=== PATIENT | female | born 1955 | race Caucasian/White ===

== ENCOUNTER 2024-06-08 08:11 | Inpatient (IN) | payer MEDICARE, MEDICAID, SELFPAY ==
[2024-06-08] VITALS (13 sets, daily range): BP systolic 121–163; BP diastolic 76–99; PULSE 91–125; RESP 18–34; TEMP 36.4–37.1; O2SAT 90–97; BMI 23.1
--- NOTE | ~2024-06-08 | XR_ITS ---
EXAMINATION: XR CHEST CLINICAL INFORMATION: Shortness of breath. COMPARISON: None available. TECHNIQUE: AP upright portable view of the chest was obtained. FINDINGS: Mild rightward rotation of the patient. The cardiac, hilar, and mediastinal contours are normal. There are patchy parenchymal opacities throughout the left greater than right lungs, with lower lung predominance, with distribution highly suggestive of infectious/inflammatory abnormality. Minimal blunting costophrenic angles noted, possibly technical, although tiny effusions are not excluded. There is no pneumothorax. Bony structures appear normal as do soft tissues. XR/XR chest 1V IMPRESSION: -Diffuse left greater than right patchy parenchymal opacities highly suggestive of multifocal infectious or inflammatory pneumonia. Consider viral, atypical etiologies. -Minimal blunting of the costophrenic angles could be technical, although tiny effusions are not excluded. Electronically signed by: Juan Domínguez MD 06/08/2024 08:54 AM [facility]
--- NOTE | 2024-06-08 08:22 | ECG_ITS ---
Test Reason : sob Blood Pressure : / mmHG Vent. Rate : 123 BPM Atrial Rate : 123 BPM P-R Int : 154 ms QRS Dur : 088 ms QT Int : 312 ms P-R-T Axes : 073 085 067 degrees QTc Int : 446 ms Sinus tachycardia Otherwise normal ECG No previous ECGs available Referred By: Ashley Akhtar Electronically Signed By:Mitchell Monsalve
--- NOTE | 2024-06-08 08:23 | ED_ITS ---
HPI - SOB/Dyspnea General Chief Complaint: Dyspnea Stated Complaint: WEAK,SOB H/O COPD,DUONEB GIVEN PER EMS Time Seen by Provider: 06/08/24 08:20 Source: patient Mode of arrival: EMS History of Present Illness ED Provider: Giovana WAGONER Narrative: 69-year-old female, history of COPD, everyday smoker but has not had a cigarette according to the patient in 2 weeks, denies any alcohol use or any other prescription medications. States her shortness of breath has been worsening over the past 2 weeks. She denies any fever, chills, GI or symptoms. Related Data Allergies Allergy/AdvReac Type Severity Reaction Status Date / Time aspirin [ASA] Allergy Hives Verified 06/08/24 08:21 Penicillins Allergy Hives Verified 06/08/24 08:21 Review of Systems 2 Review of Systems: Pertinent positives and negatives as stated in HPI COUNTS INCLUDE 234 BEDS AT THE [facility] Social History Social History Alcohol intake: former Smoked in Last 30 Days: Yes Use of substances other than those prescribed or required for medical reasons: No Advance Directives: No Advance Directives Information Provided: Yes Physical Exam 2 Vital Signs: Vital Signs: Last Vital Signs Temp 98 F 06/08/24 08:15 Pulse 123 H 06/08/24 09:56 Resp 22 H 06/08/24 09:56 BP 136/94 H 06/08/24 09:56 Pulse Ox 91 L 06/08/24 09:56 O2 Del Method High Flow Nasal C annula 06/08/24 09:56 O2 Flow Rate 50 06/08/24 09:56 Oxygen Flow Rate 6 06/08/24 08:15 BMI result Body Mass Index 23.1 VITAL SIGNS: Reviewed. GENERAL: Cachectic, in moderate distress. HEAD: Normocephalic/atraumatic EYES: PERRLA, EOMI EARS: Ext canals without abnormality NOSE: Nares patent bilateral OROPHARYNX: no oral lesions noted, posterior pharynx clear NECK: Supple, no adenopathy LUNGS: Decreased breath sounds throughout, increased work of breathing with tachypnea SpO2<85> CARDIOVASCULAR: Regular rate and rhythm without noted murmurs ABDOMEN: Soft, non-tender, non-distended with bowel sounds. MUSCULOSKELETAL: No tenderness, deformities, or effusions noted on gross inspection. EXTREMITIES: No cyanosis, clubbing or edema. SKIN: Inspection of the skin reveals no rashes NEUROLOGIC: Alert and oriented x 4. Strength and sensation to light touch were grossly intact x 4. Medications Administered Discontinued Medications Generic Name Dose Route Start Last Admin Trade Name Patricia PRN Reason Stop Dose Admin Albuterol Sulfate 7.5 mg/ 10 mg 06/08/24 08:22 06/08/24 08:41 Albuterol Sulfate 2.5 mg INHALE 06/08/24 08:23 10 mg ONCE ONE Administration Levofloxacin 750 mg in 150 mls @ 100 mls/hr 06/08/24 08:30 06/08/24 09:55 Levaquin IV 06/08/24 09:59 100 mls/hr ONCE ONE Administration Methylprednisolone Sodium Succinate 125 mg 06/08/24 08:22 06/08/24 08:36 Methylprednisolone Sod Succ 125 Mg/2 Ml Vial IVPUSH 06/08/24 08:23 125 mg ONCE ONE Administration Medical Decision Making Medical Decision Making MDM Narrative: 69-year-old female with history and clinical presentation, DD DX: COPD exacerbation, will rule out pneumonia or viral illness, no clinical suspicion for ACS. EKG: Sinus tachycardia, HR-123, no STEMI, KS/QRS/QTC is within normal limits. INTERVENTION: Bipap, albuterol, steroids 0940: Patient has significantly improved and is transition to high-flow, 0958 informed by respiratory therapy that patient is doing very well I reviewed interpreted all investigations and there is a noted leukocytosis when taken in conjunction with initial presentation and chest x-ray findings of infiltrate suggestive of sepsis with pneumonia, did obtain lactic acid and blood cultures and patient has already received antibiotics. Otherwise, no anemia or thrombocytopenia. VBG does not demonstrate any respiratory acidosis or hypercapnia. There is no demonstrated CLINT or electrolyte derangements, liver enzymes do appear to be elevated however patient has no reported history of nausea, vomiting or abdominal pain to otherwise suggest acute liver infection or gallbladder infection. 0953: I discussed case with inpatient hospitalist who will review the case for admission. Differential Diagnosis Differential Diagnoses: The differential diagnosis associated with the presentation includes Please see above Admission/Observation Consideration of admission/observation: Escalation of care including admission/observation considered Patient meets inpatient level of care Consult Healthcare Provider Management of the patient was discussed with: Hospitalist See the discussion above Lab Data [facility] Lab Attestation statement: I reviewed the patient's lab results. See the discussion above 06/08/24 08:55 06/08/24 08:55 Labs: Lab Results 06/08/24 06/08/24 Range/Units 08:55 09:00 WBC 20.3 H (4.8-10.8) X10*3/uL RBC 4.70 (4.20-5.50) X10*6/uL Hgb 13.8 (12.0-16.0) g/dl Hct 40.8 (37.0-47.0) % MCV 86.8 (80.0-98.0) fL MCH 29.4 (27.0-33.0) pg MCHC 33.8 (31.0-35.0) g/dl RDW 13.8 (11.0-16.0) % Plt Count 364 (160-400) X10*3/uL MPV 9.6 (9.4-12.3) fL Immature Gran % (Auto) 0.9 H (0.0-0.4) % Neut % (Auto) 92.3 H (45-73) % Lymph % (Auto) 3.1 L (20-40) % [place] % (Auto) 3.1 (2-11) % Eos % (Auto) 0.4 (0-4) % Baso % (Auto) 0.2 (0-2) % Lymph # (Auto) 0.6 L (1.2-4.9) X10*3/uL [place] # (Auto) 0.6 (0.1-1.2) X10*3/uL Eos # (Auto) 0.1 (0.0-0.4) X10*3/uL Baso # (Auto) 0.0 (0.0-0.2) X10*3/uL Abs Immat Gran (auto) 0.19 H (0.00-0.03) X10*3/uL Absolute Neuts (auto) 18.7 H (2.0-8.3) x10*3/uL Absolute Nucleated RBC 0.000 (0.0-0.012) X10*3/uL Nucleated RBC % (auto) 0.0 (0.0-0.2) /100WBC Smear Tech's Comments VERIFIED VBG pH 7.44 H (7.32-7.43) VBG pCO2 43 mmHg VBG pO2 70 mmHg VBG HCO3 30 H (22-26) mmol/L VBG O2 Saturation 90.0 % VBG Base Excess 5.6 mmol/L Sodium 137 (135-145) mmol/L Potassium 4.6 (3.3-5.1) mmol/L Chloride 95 L (96-108) mmol/L Carbon Dioxide 28 (22-29) mmol/L Anion Gap 19 (12-20) BUN 18 H (9-16) mg/dL Creatinine 0.75 (0.5-1.4) mg/dL Estim Creat Clear Calc 64.6 Estimated GFR > 60 Random Glucose 139 H (60-115) mg/dL Calcium 8.6 (8.4-10.2) mg/dL Magnesium 2.3 (1.6-2.6) mg/dL Total Bilirubin 1.5 H (0.0-1.0) mg/dL AST 124 H (5-31) U/L ALT 39 H (0-31) U/L Alkaline Phosphatase 264 H (39-117) U/L Total Protein 7.5 (6.5-8.0) g/dL Albumin 3.1 L (3.5-5.0) g/dL Independent Interpretation I performed an independent interpretation of an: EKG Interpretation: See above Radiology Impression Discussion of test interpretation with radiology: I discussed test interpretation with the radiologist Radiologist Impression: See above Chronic Conditions Patient?s care impacted by: Other COPD, everyday smoker Critical Care Time Critical Care Time Critical Care Time: Yes Total Critical Care Time: 60 Attestation: I personally attest to this time spent taking care of the patient. Discharge Plan Discharge Clinical Impression: COPD exacerbation, Acute hypoxic respiratory failure, Sepsis, Pneumonia Patient Disposition: Admitted As Inpatient Print Language: Persian
[2024-06-08] MEDS: methylPREDNISolone Sod Succ 125 MG/2 ML VIAL IVPUSH (08:36)
[2024-06-08] MEDS: Albuterol Sulfate 7.5 MG, Albuterol Sulfate (0.083%) 2.5 MG 10 MG INHALE (08:41)
[2024-06-08 09:02] LABS: Basophils Percent Auto 0.2 % (0-2); Eosinophils Absolute Auto 0.1 X10*3/uL (0.0-0.4); Eosinophils Percent Auto 0.4 % (0-4); Hematocrit 40.8 % (37.0-47.0); Hemoglobin 13.8 g/dl (12.0-16.0); Imm Gran Abs Auto 0.19 X10*3/uL (0.00-0.03); Imm Gran Pct Auto 0.9 % (0.0-0.4); Lymphocytes Absolute Auto 0.6 X10*3/uL (1.2-4.9); Lymphocytes Percent Auto 3.1 % (20-40); MANUAL DIFF FLAG SCAN; Mean Corpuscular HGB Conc 33.8 g/dl (31.0-35.0); Mean Corpuscular Hemoglobin 29.4 pg (27.0-33.0); Mean Corpuscular Volume 86.8 fL (80.0-98.0); Mean Platelet Volume 9.6 fL (9.4-12.3); Monocytes Absolute Auto 0.6 X10*3/uL (0.1-1.2); Monocytes Percent Auto 3.1 % (2-11); Neutrophils Absolute Auto 18.7 x10*3/uL (2.0-8.3); Neutrophils Percent Auto 92.3 % (45-73); Platelet Count 364 X10*3/uL (160-400); Red Cell Distribution Width 13.8 % (11.0-16.0); SCAN SMEAR FLAG 1; White Blood Count 20.3 X10*3/uL (4.8-10.8)
[2024-06-08 09:05] LABS: VBG Base Excess 5.6 mmol/L; VBG HCO3 30 mmol/L (22-26); VBG pCO2 43 mmHg; VBG pH 7.44 (7.32-7.43); VBG pO2 70 mmHg
[2024-06-08 09:05] LABS: Venous Blood Gas Refer to POC result
[2024-06-08 09:23] LABS: Alanine Aminotransferase 39 U/L (0-31); Albumin Level 3.1 g/dL (3.5-5.0); Alkaline Phosphatase 264 U/L (39-117); Anion Gap 19 (12-20); Aspartate Amino Transferase 124 U/L (5-31); Bilirubin Total 1.5 mg/dL (0.0-1.0); Blood Urea Nitrogen 18 mg/dL (9-16); Calcium 8.6 mg/dL (8.4-10.2); Carbon Dioxide 28 mmol/L (22-29); Chloride 95 mmol/L (96-108); Creatinine Clr Calc Pharmacy 64.6; Estimated Glomerular Filt Rate > 60; Glucose Random 139 mg/dL (60-115); Magnesium 2.3 mg/dL (1.6-2.6); Potassium 4.6 mmol/L (3.3-5.1); Sodium 137 mmol/L (135-145); Total Protein 7.5 g/dL (6.5-8.0)
[2024-06-08 09:31] LABS: SLIDE REVIEW VERIFIED
--- NOTE | 2024-06-08 09:48 | PC.NURSE ---
Patient difficult stick, 1st set of cultures obtained by RN, tech attempting to obtained 2nd set
[2024-06-08] MEDS: levoFLOXacin/D5W 750 MG/150 ML PIGGYBACK 100 MG IV (09:55)
[2024-06-08 10:25] LABS: Lactic Acid 2.4 mmol/L (0.5-2.0)
[2024-06-08 10:34] LABS: Influenza A PCR NEGATIVE (Negative); Influenza B PCR NEGATIVE (Negative); Resp Syncy Virus RNA Qual PCR NEGATIVE (Negative); SARS COV2 PCR INHOUSE NEGATIVE (Negative)
--- NOTE | 2024-06-08 11:17 | PHA.MEDREC ---
Addendum entered by Danyel Roy RPh 06/08/24 11:23: Reviewed by [facility] Original Note: Pharmacy Consult ? Medication Reconciliation Pharmacy has completed the medication reconciliation. Spoke to patient to confirm med list. Patient was able to name what medications she takes. Patient states she is no longer taking Buspirone 30 mg, last fill date was 06/08/24 for 90 days. Patent says she has not been taking this medication in over two months. patient confirmed she was taking Clonazepam 1 mg in the morning and 1 mg at bedtime.
[2024-06-08 11:55] LABS: Reflex Lactate? Lactic Acid Added
--- NOTE | 2024-06-08 12:01 | P.HPHOSP_ITS ---
History of Present Illness Date of Service: 06/08/24 Chief Complaint: SOB x1 month Patient is a 69-year-old female with a past medical history significant for COPD and tobacco use, who reported to the ED with shortness of breath, weakness and dry cough for the past 2 weeks. She denies any sick contacts, fever, chills, chest pain, nausea, vomiting or abdominal pain. She reports that she stopped 2 weeks ago due to her worsening shortness of breath. She has been using her rescue inhaler at home 4 to 5 times a day which she only usually uses every other day at baseline. She was placed on BiPAP initially with improvement in transitioned to high-flow oxygen and is feeling much better. She reports minimal eating and drinking for the past few days due to nausea and occasional bilious vomiting secondary to her shortness of breath and weakness. Review of Systems 2 Constitutional: Constitutional: Denies chills, Reports fatigue, Denies fever(s), Denies headache(s), Reports lethargy and Reports weakness Eyes: Eyes: Denies blurry vision and Denies change in vision ENT: Denies headache(s), Denies nasal congestion, Denies nasal discharge and Denies sore throat Cardiovascular: Cardiovascular: Denies chest pain, Denies rapid heart rate, Denies leg edema, Denies lightheadedness and Reports dyspnea Respiratory: Respiratory: Denies chest congestion, Reports cough (dry) and Reports dyspnea Gastrointestinal: Gastrointestinal: Denies coffee ground emesis, Denies constipation, Denies diarrhea, Reports nausea, Reports vomiting and Denies hematemesis Genitourinary: Genitourinary: Denies dysuria and Denies urinary urgency Musculoskeletal: Musculoskeletal: Denies myalgias, Denies numbness and Denies tingling Integumentary/Breasts: Skin/Breast: Denies rash Neurologic: Denies confusion, Denies headache(s), Denies memory loss, Denies numbness, Denies tingling and Reports weakness Psychiatric: Psychiatric: Denies confusion and Denies memory loss Endocrine: Endocrine: Reports fatigue [facility] Medical History (Updated 06/08/24 @ 12:56 by Mima Alvarez PA-C) Tobacco abuse COPD (chronic obstructive pulmonary disease) Social History Alcohol intake: former Smoked in Last 30 Days: Yes Use of substances other than those prescribed or required for medical reasons: No Advance Directives: No Advance Directives Information Provided: Yes Meds Allergies Allergy/AdvReac Type Severity Reaction Status Date / Time aspirin [ASA] Allergy Hives Verified 06/08/24 08:21 Penicillins Allergy Hives Verified 06/08/24 08:21 Active Medications: Current Medications Acetaminophen (Acetaminophen 325 Mg Tablet) 650 mg PO Q6H PRN PRN Reason: Pain, Mild (Pain Scale 1-3), fever or headache Calcium Carbonate (Calcium Carbonate 750 Mg Tab.Chew) 750 mg PO Q4H PRN PRN Reason: Heartburn Ceftriaxone Sodium (Ceftriaxone Sodium 1 Gm Vial) 1 gm IVPUSH DAILY [facility] Albuterol Sulfate 2.5 mg/ (Albuterol/Ipratropium 3 ml) 0 mg INHALE RQ4H WHILE AWAKE [facility] Enoxaparin Sodium (Enoxaparin Sodium 40 Mg/0.4 Ml Syringe) 40 mg SUBCUT Q24H [facility] Azithromycin 500 mg/ Sodium (Chloride) 250 mls @ 125 mls/hr IV DAILY [facility] Magnesium Hydroxide (Milk Of Magnesia 30 Ml Oral.Susp) 30 ml PO DAILY PRN PRN Reason: Constipation Melatonin (Melatonin 3 Mg Tablet) 6 mg PO BEDTIME PRN PRN Reason: Insomnia Methylprednisolone Sodium Succinate (Methylprednisolone Sod Succ 40 Mg/Ml Vial) 40 mg IVPUSH BID [facility] Ondansetron HCl (Ondansetron Hcl 4 Mg/2 Ml Vial) 4 mg IVPUSH Q8H PRN PRN Reason: Nausea and Vomiting Sodium Chloride (0.9 % Sodium Chloride Flush 3 Ml Syringe) 3 ml IVFLUSH QSHIFT [facility] Home Medications ?Medication ?Instructions ?Recorded ?Confirmed ?Last Taken ?Type albuterol sulfate 90 mcg/actuation 2 puff inhalation Q6H PRN wheezing 06/08/24 06/08/24 Unknown History aerosol inhaler atorvastatin 20 mg tablet 20 mg PO DAILY 06/08/24 06/08/24 06/07/24 History clonazepam 1 mg tablet 1 mg PO BEDTIME 06/08/24 06/08/24 06/07/24 History clonazepam 1 mg tablet 1 mg PO DAILY 06/08/24 06/08/24 06/07/24 History diphenhydramine HCl 25 mg tablet 25 mg PO BEDTIME PRN Allergy 06/08/24 06/08/24 Unknown History (Banophen) Symptoms montelukast 10 mg tablet 10 mg PO DAILY 06/08/24 06/08/24 06/07/24 History paroxetine HCl 30 mg tablet 30 mg PO BEDTIME 06/08/24 06/08/24 06/07/24 History paroxetine HCl 40 mg tablet 40 mg PO DAILY 06/08/24 06/08/24 06/07/24 History trazodone 50 mg tablet 50 - 150 mg PO BEDTIME PRN insomnia 06/08/24 06/08/24 Unknown History Physical Exam 2 Vital Signs and Narrative: Vital Signs: Last Vital Signs Temp 98.8 F 06/08/24 11:58 Pulse 109 H 06/08/24 11:58 Resp 18 06/08/24 11:58 BP 134/92 H 06/08/24 11:58 Pulse Ox 92 06/08/24 11:58 O2 Del Method High Flow Nasal C annula 06/08/24 11:58 O2 Flow Rate 50 06/08/24 09:56 Oxygen Flow Rate 6 06/08/24 08:15 BMI result Body Mass Index 23.1 General: AOx3, no acute distress, on high flow O2, bedside Resp: diffuse wheezing bilaterally CVS: tachy, regular rhythm GI: +BS, NT, no distention Skin: Warm, dry Extremities: No edema Psych: Appropriate affect Const: General: No confusion Orientation/consciousness: No confusion Neuro: General: No confusion Results Labs 06/08/24 08:55 06/08/24 08:55 Labs: Laboratory Results - last 24 hr 06/08/24 06/08/24 06/08/24 08:55 09:00 09:39 MCV 86.8 MCH 29.4 MCHC 33.8 RDW 13.8 Plt Count 364 MPV 9.6 Immature Gran % (Auto) 0.9 H Neut % (Auto) 92.3 H Lymph % (Auto) 3.1 L [place] % (Auto) 3.1 Eos % (Auto) 0.4 Baso % (Auto) 0.2 Lymph # (Auto) 0.6 L [place] # (Auto) 0.6 Eos # (Auto) 0.1 Baso # (Auto) 0.0 Abs Immat Gran (auto) 0.19 H Absolute Neuts (auto) 18.7 H Absolute Nucleated RBC 0.000 Nucleated RBC % (auto) 0.0 Smear Tech's Comments VERIFIED VBG pH 7.44 H VBG pCO2 43 VBG pO2 70 VBG HCO3 30 H VBG O2 Saturation 90.0 VBG Base Excess 5.6 Anion Gap 19 Estim Creat Clear Calc 64.6 Estimated GFR > 60 Random Glucose 139 H Lactic Acid 2.4 H* Calcium 8.6 Magnesium 2.3 Total Bilirubin 1.5 H AST 124 H ALT 39 H Alkaline Phosphatase 264 H Total Protein 7.5 Albumin 3.1 L Influenza Type A (PCR) NEGATIVE Influenza Type B (PCR) NEGATIVE RSV RNA Qual (PCR) NEGATIVE SARS-CoV-2 RNA (RT-PCR) NEGATIVE Imaging Radiologist's Impressions: Impressions Chest X-Ray 06/08/24 08:22 IMPRESSION: -Diffuse left greater than right patchy parenchymal opacities highly suggestive of multifocal infectious or inflammatory pneumonia. Consider viral, atypical etiologies. -Minimal blunting of the costophrenic angles could be technical, although tiny effusions are not excluded. Electronically signed by: Juan Domínguez MD 06/08/2024 08:54 AM [facility] Assessment and Plan (1) Sepsis: Status: Acute (2) Acute hypoxic respiratory failure: Status: Acute (3) Pneumonia: Status: Acute (4) COPD exacerbation: Status: Acute (5) Tobacco abuse: Status: Chronic Plan Patient is a 69-year-old female with a past medical history significant for COPD and tobacco use, who reported to the ED with shortness of breath, weakness and dry cough for the past 2 weeks. CBC with leukocytosis, 20.3 WBC. Lactic acid 2.4. VBG without respiratory acidosis or hypercapnia. Chest x-ray with multifocal inflammation versus pneumonia. EKG with sinus tachycardia. Sepsis with acute respiratory failure secondary to pneumonia and acute COPD exacerbation - leukocytosis on CBC, 20.3 - lactic acid 2.4, blood cultures x2 pending - chest x-ray with multifocal, left greater than right, infectious or inflammatory pneumonia, consider viral or atypical etiologies - patient started on Levaquin in ED secondary to allergy to penicillin, we will continue - respiratory panel - urine antigen strep and Legionella - continue Solu-Medrol 40 mg b.i.d. and DuoNeb q.4h while awake for COPD exacerbation - monitor CBC Elevated LFTs - likely secondary to sepsis - hold statin - monitor CMP Tobacco use - no cigarettes x2 weeks - smoking cessation encouraged and discussed - nicotine patch offered, patient declined Full code VTE prophylaxis: Lovenox Patient with sepsis with acute respiratory failure secondary to pneumonia and acute COPD exacerbation, requiring admission for IV fluids, IV steroids and breathing treatments for at least 2 midnights stay. Quality Stroke Does the patient have a stroke diagnosis?: No VTE Prior VTE?: No VTE Risk Level:: Medical - moderate - high VTE Device Contraindication: Treatment Not Indicated VTE Drug Contraindication: N/A - Med Ordered
--- NOTE | 2024-06-08 12:09 | PC.NURSE ---
Patient continues on high flow, tachycardia has improved. Patient reports feeling better but still weak and tired.
[2024-06-08] MEDS: Montelukast Sodium 10 MG TABLET PO (12:29)
[2024-06-08] MEDS: PARoxetine HCL 40 MG TABLET PO (12:29)
[2024-06-08] MEDS: Enoxaparin Sodium 40 MG/0.4 ML SYRINGE SUBCUT (12:31)
--- NOTE | 2024-06-08 15:07 | PC.NURSE ---
Patient with dry mucus membranes, has not voided since arrival, states feels like she needs to go but has not (purewick in place) bladder scanned for 349 mls, states will not be straight cathed . Provider notified
--- NOTE | 2024-06-08 15:23 | PC.NURSE ---
Patient stating unable to tolerate high flow oxygen stating it is bothering her nose. Placed on oxy mask at 6 liters sating 94%
[2024-06-08] MEDS: Albuterol/Iprat 2.5/0.5MG 3 ML AMPUL.NEB INHALE ×2 (15:24→19:21)
--- NOTE | 2024-06-08 15:28 | PM.EVENT ---
Event Note Date of Service: 06/08/24 Event Note: pt has not urinated at all today. she is taking minimal PO fluids. bladder scan in ED 347cc, pt refused stright cath. will start LR 100ml/hr and see if pt can urinate on her own soon. Time Spent With Patient Time: Total time managing care of this patient today ____ minutes.
[2024-06-08] MEDS: Lactated Ringers 1,000 ML 100 ML IVCONT (15:40)
[2024-06-08 16:59] LABS: Adenovirus PCR Not Detected (Not Detect.); Bordetella parapertussis PCR Not Detected (Not Detect.); Bordetella pertussis PCR Not Detected (Not Detect.); Chlamydia pneumoniae PCR Not Detected (Not Detect.); Coronavirus 229E PCR Not Detected (Not Detect.); Coronavirus HKU1 PCR Not Detected (Not Detect.); Coronavirus NL63 PCR Not Detected (Not Detect.); Coronavirus OC43 PCR Not Detected (Not Detect.); Human metapneumovirus PCR Not Detected (Not Detect.); Influenza A PCR Not Detected (Not Detect.); Influenza B PCR Not Detected (Not Detect.); Mycoplasma pneumoniae PCR Not Detected (Not Detect.); Parainfluenza 1 PCR Not Detected (Not Detect.); Parainfluenza 2 PCR Not Detected (Not Detect.); Parainfluenza 3 PCR Not Detected (Not Detect.); Parainfluenza 4 PCR Not Detected (Not Detect.); RSV PCR Not Detected (Not Detect.); Rhino/Enterovirus PCR Not Detected (Not Detect.)
[2024-06-08 17:23] LABS: SARS-CoV-2 PCR Not Detected (Not Detect.)
[2024-06-08] MEDS: methylPREDNISolone Sod Succ 40 MG/ML VIAL IVPUSH (20:00)
[2024-06-08] MEDS: PARoxetine HCL 30 MG TABLET PO (20:01)
[2024-06-08] MEDS: clonazePAM 1 MG TABLET PO (20:01)
[2024-06-08] MEDS: 0.9 % Sodium Chloride Flush 3 ML SYRINGE IVFLUSH (20:09)
[2024-06-08] MEDS: traZODone HCL 50 MG TABLET PO (22:29)
[2024-06-08] MEDS: guaiFEN/Codeine SF 200/20/10ML 10 ML LIQUID 5 ML PO (23:20)
[2024-06-09] VITALS (13 sets, daily range): BP systolic 101–144; BP diastolic 70–85; PULSE 80–101; RESP 18–22; TEMP 36.1–36.6; O2SAT 89–97
[2024-06-09] MEDS: Lactated Ringers 1,000 ML 100 ML IVCONT (01:04)
[2024-06-09 06:53] LABS: Basophils Percent Auto 0.3 % (0-2); Eosinophils Absolute Auto 0.1 X10*3/uL (0.0-0.4); Eosinophils Percent Auto 0.8 % (0-4); Hematocrit 30.4 % (37.0-47.0); Imm Gran Abs Auto 0.14 X10*3/uL (0.00-0.03); Imm Gran Pct Auto 0.9 % (0.0-0.4); Lymphocytes Absolute Auto 0.6 X10*3/uL (1.2-4.9); Lymphocytes Percent Auto 3.6 % (20-40); MANUAL DIFF FLAG SCAN; Mean Corpuscular HGB Conc 36.2 g/dl (31.0-35.0); Mean Corpuscular Hemoglobin 31.8 pg (27.0-33.0); Mean Corpuscular Volume 87.9 fL (80.0-98.0); Mean Platelet Volume 9.6 fL (9.4-12.3); Monocytes Absolute Auto 0.4 X10*3/uL (0.1-1.2); Monocytes Percent Auto 2.4 % (2-11); Neutrophils Absolute Auto 14.6 x10*3/uL (2.0-8.3); Platelet Count 288 X10*3/uL (160-400); Red Blood Count 3.46 X10*6/uL (4.20-5.50); SCAN SMEAR FLAG 1; White Blood Count 15.9 X10*3/uL (4.8-10.8)
[2024-06-09 07:03] LABS: Alanine Aminotransferase 28 U/L (0-31); Albumin Level 2.5 g/dL (3.5-5.0); Alkaline Phosphatase 111 U/L (39-117); Anion Gap 16 (12-20); Aspartate Amino Transferase 83 U/L (5-31); Bilirubin Total 0.8 mg/dL (0.0-1.0); Blood Urea Nitrogen 15 mg/dL (9-16); Calcium 8.6 mg/dL (8.4-10.2); Carbon Dioxide 25 mmol/L (22-29); Chloride 99 mmol/L (96-108); Creatinine Clr Calc Pharmacy 83.5; Estimated Glomerular Filt Rate > 60; Glucose Random 145 mg/dL (60-115); Sodium 136 mmol/L (135-145); Total Protein 5.8 g/dL (6.5-8.0)
[2024-06-09] MEDS: Albuterol/Iprat 2.5/0.5MG 3 ML AMPUL.NEB INHALE ×4 (07:21→19:19)
[2024-06-09 07:45] LABS: SLIDE REVIEW VERIFIED
--- NOTE | 2024-06-09 08:26 | MHC.CM.PN ---
CM met with Patient at bedside and addressed IMM with her, providing Patient with the original and a copy has been placed on the chart. 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 Home/? new [facility] is the tentative plan and CM has initiated and will follow for dc planning. PCP/HOT TOP LINER HELPER is Vanessa Corado and Patient's Ex- will transport to home.
[2024-06-09] MEDS: 0.9 % Sodium Chloride Flush 3 ML SYRINGE IVFLUSH ×3 (08:28→20:56)
[2024-06-09] MEDS: Montelukast Sodium 10 MG TABLET PO (08:28)
[2024-06-09] MEDS: methylPREDNISolone Sod Succ 40 MG/ML VIAL IVPUSH ×2 (08:28→20:56)
[2024-06-09] MEDS: PARoxetine HCL 40 MG TABLET PO (08:28)
[2024-06-09] MEDS: clonazePAM 1 MG TABLET PO ×2 (08:28→20:56)
[2024-06-09] MEDS: Enoxaparin Sodium 40 MG/0.4 ML SYRINGE SUBCUT (11:25)
[2024-06-09] MEDS: levoFLOXacin/D5W 750 MG/150 ML PIGGYBACK 100 MG IV (11:25)
--- NOTE | 2024-06-09 11:34 | HO.PM.IMPN ---
Subjective Subjective Date of Service: 06/09/24 Interval History: Patient admitted for sepsis and acute respiratory failure secondary to pneumonia and COPD exacerbation Feeling better today, shortness of breath improved, minimal wheezing. No chest pain or palpitations. No lower extremity edema. Mild nausea, controlled. No fevers or chills. Reports chronic cough and upper airway congestion, no significant change from baseline but unable to bring up sputum. Not eating much but adequate fluid intake. Constitutional Constitutional: Denies chills, Denies fever(s) and Denies headache(s) Eyes Eyes: Denies blurry vision and Denies change in vision ENT Ears, Nose, Mouth, and Throat: Denies headache(s), Denies nasal congestion, Denies nasal discharge and Denies sore throat Cardiovascular Cardiovascular: Denies chest pain, Denies rapid heart rate, Denies leg edema and Reports dyspnea Respiratory Respiratory: Reports chest congestion, Reports cough, Denies hemoptysis and Reports dyspnea Gastrointestinal Gastrointestinal: Denies constipation, Denies diarrhea, Reports nausea (Mild) and Denies vomiting Genitourinary Genitourinary: Denies dysuria and Denies urinary urgency Musculoskeletal Musculoskeletal: Denies myalgias Integumentary/Breasts Skin/Breast: Denies rash Neurologic Neurologic: Denies confusion and Denies headache(s) Psychiatric Psychiatric: Denies confusion Physical Exam Vital Signs: Vital Signs: Last Vital Signs Temp 97.8 F 06/09/24 11:12 Pulse 80 06/09/24 11:28 Resp 22 H 06/09/24 11:28 BP 123/75 06/09/24 11:12 Pulse Ox 94 06/09/24 11:12 O2 Del Method High Flow Nasal C annula 06/09/24 11:12 O2 Flow Rate 45 06/09/24 11:12 FiO2 45 06/09/24 11:12 Oxygen Flow Rate 6 06/08/24 08:15 BMI result Body Mass Index 23.1 General: AOx3, no acute distress, still on high flow O2 Resp: Rhonchi bilaterally, expiratory wheezing CVS: S1, S2, RRR GI: +BS, NT, no distention Skin: Warm, dry Extremities: No edema Psych: Appropriate affect Const: General: No confusion Orientation/consciousness: No confusion Neuro: General: No confusion Objective Data Active Medications Acetaminophen (Acetaminophen 325 Mg Tablet) 650 mg PO Q6H PRN PRN Reason: Pain, Mild (Pain Scale 1-3), fever or headache Albuterol/Ipratropium (Albuterol/Iprat 2.5/0.5mg 3 Ml Ampul.Neb) 3 ml INHALE RQ4H WHILE AWAKE [facility] Last Admin: 06/09/24 11:28 Dose: 3 ml Documented By: FAISAL Calcium Carbonate (Calcium Carbonate 750 Mg Tab.Chew) 750 mg PO Q4H PRN PRN Reason: Heartburn Clonazepam (Clonazepam 1 Mg Tablet) 1 mg PO DAILY [facility] Last Admin: 06/09/24 08:28 Dose: 1 mg Documented By: AUSTIN Clonazepam (Clonazepam 1 Mg Tablet) 1 mg PO BEDTIME [facility] Last Admin: 06/08/24 20:01 Dose: 1 mg Documented By: SHERICE Diphenhydramine HCl (Diphenhydramine Hcl 25 Mg Capsule) 25 mg PO BEDTIME PRN PRN Reason: Allergy Symptoms Enoxaparin Sodium (Enoxaparin Sodium 40 Mg/0.4 Ml Syringe) 40 mg SUBCUT Q24H [facility] Last Admin: 06/09/24 11:25 Dose: 40 mg Documented By: AUSTIN Guaifenesin/Codeine Phosphate (Guaifen/Codeine Sf 200/20/10ml 10 Ml Liquid) 5 ml PO Q6H PRN PRN Reason: Cough Last Admin: 06/08/24 23:20 Dose: 5 ml Documented By: SHERICE Levofloxacin (Levaquin) 750 mg in 150 mls @ 100 mls/hr IV Q24H [facility] Last Admin: 06/09/24 11:25 Dose: 100 mls/hr Documented By: AUSTIN Magnesium Hydroxide (Milk Of Magnesia 30 Ml Oral.Susp) 30 ml PO DAILY PRN PRN Reason: Constipation Melatonin (Melatonin 3 Mg Tablet) 6 mg PO BEDTIME PRN PRN Reason: Insomnia Methylprednisolone Sodium Succinate (Methylprednisolone Sod Succ 40 Mg/Ml Vial) 40 mg IVPUSH BID [facility] Last Admin: 06/09/24 08:28 Dose: 40 mg Documented By: AUSTIN Montelukast Sodium (Montelukast Sodium 10 Mg Tablet) 10 mg PO DAILY [facility] Last Admin: 06/09/24 08:28 Dose: 10 mg Documented By: AUSTIN Ondansetron HCl (Ondansetron Hcl 4 Mg/2 Ml Vial) 4 mg IVPUSH Q8H PRN PRN Reason: Nausea and Vomiting Paroxetine HCl (Paroxetine Hcl 30 Mg Tablet) 30 mg PO BEDTIME [facility] Last Admin: 06/08/24 20:01 Dose: 30 mg Documented By: SHERICE Paroxetine HCl (Paroxetine Hcl 40 Mg Tablet) 40 mg PO DAILY [facility] Last Admin: 06/09/24 08:28 Dose: 40 mg Documented By: AUSTIN Sodium Chloride (0.9 % Sodium Chloride Flush 3 Ml Syringe) 3 ml IVFLUSH QSHIFT [facility] Last Admin: 06/09/24 08:28 Dose: 3 ml Documented By: AUSTIN Trazodone HCl (Trazodone Hcl 50 Mg Tablet) 50 mg PO BEDTIME PRN PRN Reason: insomnia Last Admin: 06/08/24 22:29 Dose: 50 mg Documented By: SHERICE Labs 06/09/24 06:18 06/09/24 06:18 Labs: Laboratory Results - last 24 hr 06/08/24 06/08/24 06/09/24 12:33 14:14 06:18 MCV 87.9 MCH 31.8 MCHC 36.2 H RDW 14.0 Plt Count 288 MPV 9.6 Immature Gran % (Auto) 0.9 H Neut % (Auto) 92.0 H Lymph % (Auto) 3.6 L [place] % (Auto) 2.4 Eos % (Auto) 0.8 Baso % (Auto) 0.3 Lymph # (Auto) 0.6 L [place] # (Auto) 0.4 Eos # (Auto) 0.1 Baso # (Auto) 0.0 Abs Immat Gran (auto) 0.14 H Absolute Neuts (auto) 14.6 H Absolute Nucleated RBC 0.000 Nucleated RBC % (auto) 0.0 Smear Tech's Comments VERIFIED Anion Gap 16 Estim Creat Clear Calc 83.5 Estimated GFR > 60 Random Glucose 145 H Lactic Acid F/U @ 2Hr 2.0 Calcium 8.6 Total Bilirubin 0.8 AST 83 H ALT 28 Alkaline Phosphatase 111 Total Protein 5.8 L Albumin 2.5 L Respiratory Panel [place] See Note Adenovirus (Rapid PCR) Not Detected B.pert (TEM-PCR) Not Detected B.parapertussis DNA PCR Not Detected C. pneumoniae DNA (PCR) Not Detected Coronavirus OC43 (PCR) Not Detected Coronavirus HKU1 (PCR) Not Detected Coronavirus 229E (PCR) Not Detected Coronavirus NL63 (PCR) Not Detected Human Metapneumovir PCR Not Detected Influenza A (RT-PCR) Not Detected Influenza B (RT-PCR) Not Detected M. pneumoniae (PCR) Not Detected Parainfluenza 1 (PCR) Not Detected Parainfluenza 2 (PCR) Not Detected Parainfluenza 3 (PCR) Not Detected Parainfluenza 4 (PCR) Not Detected RSV (PCR) Not Detected Entero/Rhino (PCR) Not Detected SARS-CoV-2 RNA (RT-PCR) Not Detected Microbiology Microbiology Results: Microbiology 06/08/24 08:54 Blood Culture - Preliminary Blood - Venous No growth after 24 hours. Assessment and Plan (1) Sepsis: Status: Acute (2) Acute hypoxic respiratory failure: Status: Acute (3) Pneumonia: Status: Acute (4) COPD exacerbation: Status: Acute (5) Tobacco abuse: Status: Chronic Plan Patient is a 69-year-old female admitted for a sepsis with acute respiratory failure secondary to pneumonia and acute COPD exacerbation Sepsis with acute respiratory failure secondary to pneumonia and acute COPD exacerbation - leukocytosis improved - blood cultures x2 pending - continue Levaquin 750 mg QD - respiratory panel negative - urine antigen strep and Legionella pending - continue Solu-Medrol 40 mg b.i.d. and DuoNeb q.4h while awake for COPD exacerbation - monitor CBC Elevated LFTs secondary to sepsis, improved - continue to hold statin - monitor CMP Tobacco use - no cigarettes x2 weeks - smoking cessation encouraged and discussed - nicotine patch offered, patient declined Full code VTE prophylaxis: Lovenox Patient with sepsis with acute respiratory failure secondary to pneumonia and acute COPD exacerbation, requiring continued admission for high-flow oxygen, IV antibiotics, IV steroids and breathing treatments. Quality Stroke Does the patient have a stroke diagnosis?: No VTE Prior VTE?: No VTE Risk Level:: Medical - moderate - high VTE Device Contraindication: Treatment Not Indicated VTE Drug Contraindication: N/A - Med Ordered
[2024-06-09 13:14] LABS: MRSA Nasal PCR NEGATIVE (Negative); SA Nasal PCR NEGATIVE (Negative)
[2024-06-09] MEDS: PARoxetine HCL 30 MG TABLET PO (20:56)
[2024-06-10] VITALS (10 sets, daily range): BP systolic 117–141; BP diastolic 58–83; PULSE 74–91; RESP 17–22; TEMP 36.1–36.7; O2SAT 90–97
[2024-06-10 06:36] LABS: MANUAL DIFF FLAG NO
[2024-06-10 06:41] LABS: Basophils Percent Auto 0.2 % (0-2); Hematocrit 33.2 % (37.0-47.0); Hemoglobin 10.9 g/dl (12.0-16.0); Imm Gran Abs Auto 0.08 X10*3/uL (0.00-0.03); Imm Gran Pct Auto 0.8 % (0.0-0.4); Lymphocytes Absolute Auto 0.7 X10*3/uL (1.2-4.9); Lymphocytes Percent Auto 6.6 % (20-40); Mean Corpuscular HGB Conc 32.8 g/dl (31.0-35.0); Mean Corpuscular Hemoglobin 29.3 pg (27.0-33.0); Mean Corpuscular Volume 89.2 fL (80.0-98.0); Mean Platelet Volume 9.4 fL (9.4-12.3); Monocytes Absolute Auto 0.3 X10*3/uL (0.1-1.2); Monocytes Percent Auto 2.4 % (2-11); Neutrophils Absolute Auto 9.3 x10*3/uL (2.0-8.3); Platelet Count 325 X10*3/uL (160-400); Red Blood Count 3.72 X10*6/uL (4.20-5.50); Red Cell Distribution Width 14.1 % (11.0-16.0); White Blood Count 10.3 X10*3/uL (4.8-10.8)
[2024-06-10 07:05] LABS: Alanine Aminotransferase 50 U/L (0-31); Albumin Level 2.6 g/dL (3.5-5.0); Alkaline Phosphatase 119 U/L (39-117); Anion Gap 12 (12-20); Aspartate Amino Transferase 130 U/L (5-31); Bilirubin Total 0.5 mg/dL (0.0-1.0); Blood Urea Nitrogen 19 mg/dL (9-16); Calcium 8.9 mg/dL (8.4-10.2); Carbon Dioxide 29 mmol/L (22-29); Chloride 100 mmol/L (96-108); Creatinine Clr Calc Pharmacy 80.8; Estimated Glomerular Filt Rate > 60; Glucose Random 141 mg/dL (60-115); Potassium 4.4 mmol/L (3.3-5.1); Sodium 137 mmol/L (135-145); Total Protein 5.9 g/dL (6.5-8.0)
[2024-06-10] MEDS: Albuterol/Iprat 2.5/0.5MG 3 ML AMPUL.NEB INHALE ×4 (07:20→20:25)
[2024-06-10] MEDS: levoFLOXacin/D5W 750 MG/150 ML PIGGYBACK IV (09:35)
[2024-06-10] MEDS: methylPREDNISolone Sod Succ 40 MG/ML VIAL IVPUSH ×2 (09:35→21:24)
[2024-06-10] MEDS: Montelukast Sodium 10 MG TABLET PO (09:36)
[2024-06-10] MEDS: clonazePAM 1 MG TABLET PO ×2 (09:36→21:24)
[2024-06-10] MEDS: PARoxetine HCL 40 MG TABLET PO (09:36)
--- NOTE | 2024-06-10 09:49 | HO.PM.IMPN ---
Subjective Subjective Date of Service: 06/10/24 Interval History: Patient admitted for sepsis, acute respiratory failure, pneumonia and COPD exacerbation Feeling better, shortness of breath improved but still present, still wheezing. Improvement with DuoNebs. Still with chronic dry cough, states Mucinex is not helping. No fever, chills, nausea, vomiting, abdominal pain chest pain. Lives alone with minimal support from friends and ex Constitutional Constitutional: Denies chills, Denies fever(s) and Denies headache(s) ENT Ears, Nose, Mouth, and Throat: Denies headache(s) Neurologic Neurologic: Denies headache(s) Physical Exam Vital Signs: Vital Signs: Last Vital Signs Temp 97.2 F 06/10/24 07:35 Pulse 74 06/10/24 07:35 Resp 22 H 06/10/24 07:35 BP 135/80 06/10/24 07:35 Pulse Ox 94 06/10/24 07:35 O2 Del Method Nasal Cannula 06/10/24 07:35 O2 Flow Rate 6 06/10/24 07:35 FiO2 45 06/09/24 11:12 Oxygen Flow Rate 6 06/08/24 08:15 BMI result Body Mass Index 23.1 Objective Data Active Medications Acetaminophen (Acetaminophen 325 Mg Tablet) 650 mg PO Q6H PRN PRN Reason: Pain, Mild (Pain Scale 1-3), fever or headache Albuterol/Ipratropium (Albuterol/Iprat 2.5/0.5mg 3 Ml Ampul.Neb) 3 ml INHALE RQ4H WHILE AWAKE [facility] Last Admin: 06/10/24 07:20 Dose: 3 ml Documented By: MAGGI Calcium Carbonate (Calcium Carbonate 750 Mg Tab.Chew) 750 mg PO Q4H PRN PRN Reason: Heartburn Clonazepam (Clonazepam 1 Mg Tablet) 1 mg PO DAILY [facility] Last Admin: 06/10/24 09:36 Dose: 1 mg Documented By: TROY Clonazepam (Clonazepam 1 Mg Tablet) 1 mg PO BEDTIME [facility] Last Admin: 06/09/24 20:56 Dose: 1 mg Documented By: SHERICE Diphenhydramine HCl (Diphenhydramine Hcl 25 Mg Capsule) 25 mg PO BEDTIME PRN PRN Reason: Allergy Symptoms Enoxaparin Sodium (Enoxaparin Sodium 40 Mg/0.4 Ml Syringe) 40 mg SUBCUT Q24H [facility] Last Admin: 06/09/24 11:25 Dose: 40 mg Documented By: AUSTIN Guaifenesin (Guaifenesin [place] 600 Mg Tab.Er.12h) 600 mg PO BID PRN PRN Reason: Cough Guaifenesin/Codeine Phosphate (Guaifen/Codeine Sf 200/20/10ml 10 Ml Liquid) 5 ml PO Q6H PRN PRN Reason: Cough Last Admin: 06/08/24 23:20 Dose: 5 ml Documented By: SHERICE Levofloxacin (Levaquin) 750 mg in 150 mls @ 100 mls/hr IV Q24H [facility] Last Admin: 06/10/24 09:35 Dose: 750 mls/hr Documented By: TROY Magnesium Hydroxide (Milk Of Magnesia 30 Ml Oral.Susp) 30 ml PO DAILY PRN PRN Reason: Constipation Melatonin (Melatonin 3 Mg Tablet) 6 mg PO BEDTIME PRN PRN Reason: Insomnia Methylprednisolone Sodium Succinate (Methylprednisolone Sod Succ 40 Mg/Ml Vial) 40 mg IVPUSH BID [facility] Last Admin: 06/10/24 09:35 Dose: 40 mg Documented By: TROY Montelukast Sodium (Montelukast Sodium 10 Mg Tablet) 10 mg PO DAILY [facility] Last Admin: 06/10/24 09:36 Dose: 10 mg Documented By: TROY Ondansetron HCl (Ondansetron Hcl 4 Mg/2 Ml Vial) 4 mg IVPUSH Q8H PRN PRN Reason: Nausea and Vomiting Paroxetine HCl (Paroxetine Hcl 30 Mg Tablet) 30 mg PO BEDTIME [facility] Last Admin: 06/09/24 20:56 Dose: 30 mg Documented By: SHERICE Paroxetine HCl (Paroxetine Hcl 40 Mg Tablet) 40 mg PO DAILY [facility] Last Admin: 06/10/24 09:36 Dose: 40 mg Documented By: TROY Sodium Chloride (0.9 % Sodium Chloride Flush 3 Ml Syringe) 3 ml IVFLUSH QSHIFT [facility] Last Admin: 06/09/24 20:56 Dose: 3 ml Documented By: SHERICE Trazodone HCl (Trazodone Hcl 50 Mg Tablet) 50 mg PO BEDTIME PRN PRN Reason: insomnia Last Admin: 06/08/24 22:29 Dose: 50 mg Documented By: SHERICE Labs 06/10/24 06:24 06/10/24 06:24 Labs: Laboratory Results - last 24 hr 06/09/24 06/10/24 11:20 06:24 MCV 89.2 MCH 29.3 MCHC 32.8 RDW 14.1 Plt Count 325 MPV 9.4 Immature Gran % (Auto) 0.8 H Neut % (Auto) 90.0 H Lymph % (Auto) 6.6 L [place] % (Auto) 2.4 Eos % (Auto) 0.0 Baso % (Auto) 0.2 Lymph # (Auto) 0.7 L [place] # (Auto) 0.3 Eos # (Auto) 0.0 Baso # (Auto) 0.0 Abs Immat Gran (auto) 0.08 H Absolute Neuts (auto) 9.3 H Absolute Nucleated RBC 0.000 Nucleated RBC % (auto) 0.0 Anion Gap 12 Estim Creat Clear Calc 80.8 Estimated GFR > 60 Random Glucose 141 H Calcium 8.9 Total Bilirubin 0.5 AST 130 H ALT 50 H Alkaline Phosphatase 119 H Total Protein 5.9 L Albumin 2.6 L Nasal Screen MRSA (PCR) NEGATIVE Nasal S. aureus Screen NEGATIVE Nasal MRSA/S.aureus Interp SEE NOTE Microbiology Microbiology Results: Microbiology 06/08/24 09:45 Blood Culture - Preliminary Blood - Venous No growth after 24 hours. 06/08/24 08:54 Blood Culture - Preliminary Blood - Venous No growth after 24 hours. Assessment and Plan (1) Sepsis: Status: Acute (2) Acute hypoxic respiratory failure: Status: Acute (3) Pneumonia: Status: Acute (4) COPD exacerbation: Status: Acute (5) Tobacco abuse: Status: Chronic Plan Patient is a 69-year-old female admitted for a sepsis with acute respiratory failure secondary to pneumonia and acute COPD exacerbation Sepsis with acute respiratory failure secondary to pneumonia and acute COPD exacerbation - leukocytosis improved - blood cultures x2 no growth after 24 hours - continue Levaquin 750 mg QD - respiratory panel negative - urine antigen strep and Legionella pending - continue Solu-Medrol 40 mg b.i.d. and DuoNeb q.4h while awake for COPD exacerbation - tessalon TID PRN for cough - monitor CBC Elevated LFTs secondary to sepsis, improved - continue to hold statin - hepatitis studies - monitor CMP Tobacco use - no cigarettes x2 weeks - smoking cessation encouraged and discussed - nicotine patch offered, patient declined Full code VTE prophylaxis: Lovenox Patient with sepsis with acute respiratory failure secondary to pneumonia and acute COPD exacerbation, requiring continued admission for high-flow oxygen, IV antibiotics, IV steroids and breathing treatments. Quality Stroke Does the patient have a stroke diagnosis?: No VTE Prior VTE?: No VTE Risk Level:: Medical - moderate - high VTE Device Contraindication: Treatment Not Indicated VTE Drug Contraindication: N/A - Med Ordered
--- NOTE | 2024-06-10 10:39 | MHC.CM.PN ---
Per ROUNDS discussion, Patient is not yet medically cleared for dc (IV Levaquin and IV Solu Medrol); home is the goal and CM will continue to follow.
[2024-06-10] MEDS: 0.9 % Sodium Chloride Flush 3 ML SYRINGE IVFLUSH ×3 (11:00→21:24)
[2024-06-10 11:18] LABS: Estimated Average Glucose 123 mg/dL; Hemoglobin A1C 119.9387 umol/L; Hemoglobin A1c % 5.9 % (<6.0); Total Hemoglobin (HGBA1C) 2908.5869 umol/L
[2024-06-10 11:32] LABS: HBc Num1 0.13 S/CO (0.00-0.79); HBsAGNum1 0.27 S/CO (0.00-0.99); Hepatitis A Antibody IgM 0.15 Index (0-0.79); Hepatitis B Core Antibody Nonreactive (Nonreactive); Hepatitis B Surface Antigen Negative (Negative); ~HepC Num1 0.56 S/CO (0.00-0.79); ~Hepatitis A Antibody IgM Nonreactive (Nonreactive); ~Hepatitis B Surface Antibody NONREACTIVE (Nonreactive); ~Hepatitis C Antibody Nonreactive (Nonreactive)
[2024-06-10] MEDS: Omeprazole 20 MG CAPSULE.DR PO (13:14)
[2024-06-10] MEDS: Enoxaparin Sodium 40 MG/0.4 ML SYRINGE SUBCUT (13:14)
[2024-06-10] MEDS: Loratadine 10 MG TABLET PO (13:14)
[2024-06-10] MEDS: Benzonatate 100 MG CAPSULE 200 MG PO ×2 (16:47→23:55)
[2024-06-10] MEDS: PARoxetine HCL 30 MG TABLET PO (21:24)
[2024-06-10] MEDS: guaiFEN/Codeine SF 200/20/10ML 10 ML LIQUID 5 ML PO (21:26)
[2024-06-10] MEDS: traZODone HCL 50 MG TABLET PO (23:55)
[2024-06-11] VITALS (12 sets, daily range): BP systolic 110–160; BP diastolic 77–87; PULSE 86–105; RESP 16–20; TEMP 36.2–36.8; O2SAT 91–99
[2024-06-11] MEDS: guaiFEN/Codeine SF 200/20/10ML 10 ML LIQUID 5 ML PO ×3 (01:44→17:34)
[2024-06-11] MEDS: 0.9 % Sodium Chloride Flush 3 ML SYRINGE IVFLUSH ×2 (07:31→17:35)
[2024-06-11] MEDS: Omeprazole 20 MG CAPSULE.DR PO (07:31)
[2024-06-11] MEDS: Albuterol/Iprat 2.5/0.5MG 3 ML AMPUL.NEB INHALE ×4 (07:48→20:55)
[2024-06-11 08:26] LABS: MANUAL DIFF FLAG NO
[2024-06-11 08:28] LABS: Basophils Percent Auto 0.2 % (0-2); Hematocrit 36.6 % (37.0-47.0); Imm Gran Abs Auto 0.04 X10*3/uL (0.00-0.03); Imm Gran Pct Auto 0.6 % (0.0-0.4); Lymphocytes Absolute Auto 0.7 X10*3/uL (1.2-4.9); Lymphocytes Percent Auto 11.4 % (20-40); Mean Corpuscular HGB Conc 32.8 g/dl (31.0-35.0); Mean Corpuscular Hemoglobin 28.6 pg (27.0-33.0); Mean Corpuscular Volume 87.4 fL (80.0-98.0); Mean Platelet Volume 9.1 fL (9.4-12.3); Monocytes Absolute Auto 0.3 X10*3/uL (0.1-1.2); Monocytes Percent Auto 3.9 % (2-11); Neutrophils Absolute Auto 5.4 x10*3/uL (2.0-8.3); Neutrophils Percent Auto 83.9 % (45-73); Platelet Count 316 X10*3/uL (160-400); Red Blood Count 4.19 X10*6/uL (4.20-5.50); Red Cell Distribution Width 14.6 % (11.0-16.0); White Blood Count 6.5 X10*3/uL (4.8-10.8)
[2024-06-11 09:05] LABS: Alanine Aminotransferase 56 U/L (0-31); Albumin Level 2.7 g/dL (3.5-5.0); Anion Gap 16 (12-20); Aspartate Amino Transferase 99 U/L (5-31); Bilirubin Total 0.5 mg/dL (0.0-1.0); Blood Urea Nitrogen 13 mg/dL (9-16); Calcium 8.7 mg/dL (8.4-10.2); Carbon Dioxide 30 mmol/L (22-29); Chloride 101 mmol/L (96-108); Estimated Glomerular Filt Rate > 60; Glucose Random 101 mg/dL (60-115); Potassium 4.9 mmol/L (3.3-5.1); Sodium 142 mmol/L (135-145)
[2024-06-11] MEDS: PARoxetine HCL 40 MG TABLET PO (09:14)
[2024-06-11] MEDS: Montelukast Sodium 10 MG TABLET PO (09:14)
[2024-06-11] MEDS: clonazePAM 1 MG TABLET PO ×2 (09:14→22:29)
[2024-06-11] MEDS: methylPREDNISolone Sod Succ 40 MG/ML VIAL IVPUSH ×2 (09:15→22:29)
[2024-06-11] MEDS: Loratadine 10 MG TABLET PO (09:15)
[2024-06-11 09:16] LABS: Alkaline Phosphatase 93 U/L (39-117)
[2024-06-11] MEDS: Benzonatate 100 MG CAPSULE 200 MG PO ×2 (10:31→22:29)
[2024-06-11] MEDS: levoFLOXacin 750 MG TABLET PO (10:35)
--- NOTE | 2024-06-11 11:22 | HO.PM.IMPN ---
Subjective Subjective Date of Service: 06/11/24 Interval History: acute hypoxemic respiratory failure Review of Systems sob /cough somewhat improving no fever or chills Physical Exam Vital Signs: Vital Signs: Last Vital Signs Temp 97.1 F 06/11/24 07:35 Pulse 95 06/11/24 11:13 Resp 17 06/11/24 11:13 BP 150/84 H 06/11/24 07:35 Pulse Ox 99 06/11/24 07:35 O2 Del Method Nasal Cannula 06/11/24 07:35 O2 Flow Rate 6 06/11/24 07:35 FiO2 45 06/09/24 11:12 Oxygen Flow Rate 6 06/08/24 08:15 BMI result Body Mass Index 23.1 General: AOx3, sob improving ,on NC now Resp: Rhonchi bilaterally, expiratory wheezing CVS: S1, S2, RRR GI: +BS, NT, no distention Skin: Warm, dry Extremities: No edema or cyanosis. Psych: Appropriate affect Objective Data Active Medications Acetaminophen (Acetaminophen 325 Mg Tablet) 650 mg PO Q6H PRN PRN Reason: Pain, Mild (Pain Scale 1-3), fever or headache Albuterol/Ipratropium (Albuterol/Iprat 2.5/0.5mg 3 Ml Ampul.Neb) 3 ml INHALE RQ4H WHILE AWAKE [facility] Last Admin: 06/11/24 11:12 Dose: 3 ml Documented By: MAGGI Benzonatate (Benzonatate 100 Mg Capsule) 200 mg PO TID PRN PRN Reason: Cough Last Admin: 06/11/24 10:31 Dose: 200 mg Documented By: ANGEL Calcium Carbonate (Calcium Carbonate 750 Mg Tab.Chew) 750 mg PO Q4H PRN PRN Reason: Heartburn Clonazepam (Clonazepam 1 Mg Tablet) 1 mg PO DAILY [facility] Last Admin: 06/11/24 09:14 Dose: 1 mg Documented By: ANGEL Clonazepam (Clonazepam 1 Mg Tablet) 1 mg PO BEDTIME [facility] Last Admin: 06/10/24 21:24 Dose: 1 mg Documented By: ANIBAL Diphenhydramine HCl (Diphenhydramine Hcl 25 Mg Capsule) 25 mg PO BEDTIME PRN PRN Reason: Allergy Symptoms Enoxaparin Sodium (Enoxaparin Sodium 40 Mg/0.4 Ml Syringe) 40 mg SUBCUT Q24H [facility] Last Admin: 06/10/24 13:14 Dose: 40 mg Documented By: TROY Guaifenesin/Codeine Phosphate (Guaifen/Codeine Sf 200/20/10ml 10 Ml Liquid) 5 ml PO Q6H PRN PRN Reason: Cough Last Admin: 06/11/24 07:31 Dose: 5 ml Documented By: ANGEL Levofloxacin (Levofloxacin 750 Mg Tablet) 750 mg PO Q24H [facility] Last Admin: 06/11/24 10:35 Dose: 750 mg Documented By: ANGEL Loratadine (Loratadine 10 Mg Tablet) 10 mg PO DAILY [facility] Last Admin: 06/11/24 09:15 Dose: 10 mg Documented By: ANGEL Magnesium Hydroxide (Milk Of Magnesia 30 Ml Oral.Susp) 30 ml PO DAILY PRN PRN Reason: Constipation Melatonin (Melatonin 3 Mg Tablet) 6 mg PO BEDTIME PRN PRN Reason: Insomnia Methylprednisolone Sodium Succinate (Methylprednisolone Sod Succ 40 Mg/Ml Vial) 40 mg IVPUSH BID [facility] Last Admin: 06/11/24 09:15 Dose: 40 mg Documented By: ANGEL Montelukast Sodium (Montelukast Sodium 10 Mg Tablet) 10 mg PO DAILY [facility] Last Admin: 06/11/24 09:14 Dose: 10 mg Documented By: ANGEL Omeprazole (Omeprazole 20 Mg Capsule.Dr) 20 mg PO DAILY@0630 [facility] Last Admin: 06/11/24 07:31 Dose: 20 mg Documented By: ANGEL Ondansetron HCl (Ondansetron Hcl 4 Mg/2 Ml Vial) 4 mg IVPUSH Q8H PRN PRN Reason: Nausea and Vomiting Paroxetine HCl (Paroxetine Hcl 30 Mg Tablet) 30 mg PO BEDTIME [facility] Last Admin: 06/10/24 21:24 Dose: 30 mg Documented By: ANIBAL Paroxetine HCl (Paroxetine Hcl 40 Mg Tablet) 40 mg PO DAILY [facility] Last Admin: 06/11/24 09:14 Dose: 40 mg Documented By: ANGEL Sodium Chloride (0.9 % Sodium Chloride Flush 3 Ml Syringe) 3 ml IVFLUSH QSHIFT [facility] Last Admin: 06/11/24 07:31 Dose: 3 ml Documented By: ANGEL Trazodone HCl (Trazodone Hcl 50 Mg Tablet) 50 mg PO BEDTIME PRN PRN Reason: insomnia Last Admin: 06/10/24 23:55 Dose: 50 mg Documented By: ANIBAL Labs 06/11/24 07:51 06/11/24 07:51 Labs: Laboratory Results - last 24 hr 06/10/24 06/11/24 10:32 07:51 MCV 87.4 MCH 28.6 MCHC 32.8 RDW 14.6 Plt Count 316 MPV 9.1 L Immature Gran % (Auto) 0.6 H Neut % (Auto) 83.9 H Lymph % (Auto) 11.4 L [place] % (Auto) 3.9 Eos % (Auto) 0.0 Baso % (Auto) 0.2 Lymph # (Auto) 0.7 L [place] # (Auto) 0.3 Eos # (Auto) 0.0 Baso # (Auto) 0.0 Abs Immat Gran (auto) 0.04 H Absolute Neuts (auto) 5.4 Absolute Nucleated RBC 0.000 Nucleated RBC % (auto) 0.0 Anion Gap 16 Estim Creat Clear Calc 85.0 Estimated GFR > 60 Random Glucose 101 Calcium 8.7 Total Bilirubin 0.5 AST 99 H ALT 56 H Alkaline Phosphatase 93 Total Protein 6.0 L Albumin 2.7 L Hepatitis A IgM Ab Nonreactive Hep Bs Antigen Negative Hep Bs Antibody NONREACTIVE Hep B Core Total Ab Nonreactive Hepatitis C Ab (EIA) Nonreactive Microbiology Microbiology Results: Microbiology 06/08/24 09:45 Blood Culture - Preliminary Blood - Venous No growth after 48 hours. 06/08/24 08:54 Blood Culture - Preliminary Blood - Venous No growth after 48 hours. Assessment and Plan (1) COPD (chronic obstructive pulmonary disease): Status: Acute (2) Acute hypoxic respiratory failure: Status: Acute (3) Pneumonia: Status: Acute Plan 69-year-old female admitted for a sepsis with acute respiratory failure secondary to pneumonia and acute COPD exacerbation Sepsis with acute respiratory failure secondary to pneumonia and acute COPD exacerbation sob seems some what improving ,leukocytosis improved, no fever blood cultures x2 no growth after 48 hours res voral panel negative. urine antigen strep and Legionella pending plan: taper oxygen continue Levaquin 750 mg QD, Solu-Medrol 40 mg b.i.d. and DuoNeb q.4h while awake for COPD exacerbation, tessalon TID PRN for cough monitor CBC Elevated LFTs possible secondary to sepsis. improving hepatitis serologies -negative . plan:continue to hold statin moniter Lft's. Tobacco use - no cigarettes x2 weeks smoking cessation encouraged and discussed nicotine patch offered, patient declined. VTE prophylaxis: Lovenox ongoing need sepsis with acute respiratory failure secondary to pneumonia and acute COPD exacerbation, requiring continuedneed for oxygen, IV antibiotics, IV steroids and breathing treatments. Quality Stroke Does the patient have a stroke diagnosis?: No VTE Prior VTE?: No VTE Risk Level:: Medical - moderate - high VTE Device Contraindication: Treatment Not Indicated VTE Drug Contraindication: N/A - Med Ordered
[2024-06-11] MEDS: Enoxaparin Sodium 40 MG/0.4 ML SYRINGE SUBCUT (12:18)
[2024-06-11] MEDS: PARoxetine HCL 30 MG TABLET PO (22:29)
[2024-06-11] MEDS: traZODone HCL 50 MG TABLET PO (22:34)
[2024-06-12] VITALS (9 sets, daily range): BP systolic 105–162; BP diastolic 75–84; PULSE 78–107; RESP 12–20; TEMP 36.2–36.8; O2SAT 87–95
[2024-06-12] MEDS: guaiFEN/Codeine SF 200/20/10ML 10 ML LIQUID 5 ML PO (04:29)
[2024-06-12] MEDS: Omeprazole 20 MG CAPSULE.DR PO (04:29)
[2024-06-12] MEDS: 0.9 % Sodium Chloride Flush 3 ML SYRINGE IVFLUSH ×4 (04:32→20:28)
[2024-06-12] MEDS: PARoxetine HCL 40 MG TABLET PO (08:08)
[2024-06-12] MEDS: Loratadine 10 MG TABLET PO (08:08)
[2024-06-12] MEDS: Montelukast Sodium 10 MG TABLET PO (08:08)
[2024-06-12] MEDS: clonazePAM 1 MG TABLET PO ×2 (08:08→20:28)
[2024-06-12] MEDS: methylPREDNISolone Sod Succ 40 MG/ML VIAL IVPUSH ×2 (08:08→20:28)
[2024-06-12] MEDS: Albuterol/Iprat 2.5/0.5MG 3 ML AMPUL.NEB INHALE ×4 (08:46→19:08)
[2024-06-12] MEDS: levoFLOXacin 750 MG TABLET PO (11:38)
[2024-06-12] MEDS: Enoxaparin Sodium 40 MG/0.4 ML SYRINGE SUBCUT (11:38)
--- NOTE | 2024-06-12 12:57 | HO.PM.IMPN ---
Subjective Subjective Date of Service: 06/12/24 Interval History: acute hypoxemic respiratory failure Review of Systems sob /cough somewhat improving no fever or chills Physical Exam Vital Signs: Vital Signs: Last Vital Signs Temp 97.2 F 06/12/24 11:44 Pulse 96 06/12/24 11:44 Resp 14 06/12/24 11:44 BP 134/76 06/12/24 11:44 Pulse Ox 95 06/12/24 11:44 O2 Del Method Nasal Cannula, Hu midified O2 06/12/24 11:44 O2 Flow Rate 3 06/12/24 11:44 FiO2 45 06/09/24 11:12 Oxygen Flow Rate 6 06/08/24 08:15 BMI result Body Mass Index 23.1 General: AOx3, sob improving ,on NC now Resp: Rhonchi bilaterally, expiratory wheezing CVS: S1, S2, RRR GI: +BS, NT, no distention Skin: Warm, dry Extremities: No edema or cyanosis. Psych: Appropriate affect Objective Data Active Medications Acetaminophen (Acetaminophen 325 Mg Tablet) 650 mg PO Q6H PRN PRN Reason: Pain, Mild (Pain Scale 1-3), fever or headache Albuterol/Ipratropium (Albuterol/Iprat 2.5/0.5mg 3 Ml Ampul.Neb) 3 ml INHALE RQ4H WHILE AWAKE [facility] Last Admin: 06/12/24 11:30 Dose: 3 ml Documented By: AMINAH Benzonatate (Benzonatate 100 Mg Capsule) 200 mg PO TID PRN PRN Reason: Cough Last Admin: 06/11/24 22:29 Dose: 200 mg Documented By: ANIBAL Comments: requested for cough Calcium Carbonate (Calcium Carbonate 750 Mg Tab.Chew) 750 mg PO Q4H PRN PRN Reason: Heartburn Clonazepam (Clonazepam 1 Mg Tablet) 1 mg PO DAILY [facility] Last Admin: 06/12/24 08:08 Dose: 1 mg Documented By: ANGEL Clonazepam (Clonazepam 1 Mg Tablet) 1 mg PO BEDTIME [facility] Last Admin: 06/11/24 22:29 Dose: 1 mg Documented By: ANIBAL Diphenhydramine HCl (Diphenhydramine Hcl 25 Mg Capsule) 25 mg PO BEDTIME PRN PRN Reason: Allergy Symptoms Enoxaparin Sodium (Enoxaparin Sodium 40 Mg/0.4 Ml Syringe) 40 mg SUBCUT Q24H [facility] Last Admin: 06/12/24 11:38 Dose: 40 mg Documented By: ANGEL Guaifenesin/Codeine Phosphate (Guaifen/Codeine Sf 200/20/10ml 10 Ml Liquid) 5 ml PO Q6H PRN PRN Reason: Cough Last Admin: 06/12/24 04:29 Dose: 5 ml Documented By: ANIBAL Levofloxacin (Levofloxacin 750 Mg Tablet) 750 mg PO Q24H [facility] Last Admin: 06/12/24 11:38 Dose: 750 mg Documented By: ANGEL Loratadine (Loratadine 10 Mg Tablet) 10 mg PO DAILY [facility] Last Admin: 06/12/24 08:08 Dose: 10 mg Documented By: ANGEL Magnesium Hydroxide (Milk Of Magnesia 30 Ml Oral.Susp) 30 ml PO DAILY PRN PRN Reason: Constipation Melatonin (Melatonin 3 Mg Tablet) 6 mg PO BEDTIME PRN PRN Reason: Insomnia Methylprednisolone Sodium Succinate (Methylprednisolone Sod Succ 40 Mg/Ml Vial) 40 mg IVPUSH BID [facility] Last Admin: 06/12/24 08:08 Dose: 40 mg Documented By: ANGEL Montelukast Sodium (Montelukast Sodium 10 Mg Tablet) 10 mg PO DAILY [facility] Last Admin: 06/12/24 08:08 Dose: 10 mg Documented By: ANGEL Omeprazole (Omeprazole 20 Mg Capsule.Dr) 20 mg PO DAILY@0630 [facility] Last Admin: 06/12/24 04:29 Dose: 20 mg Documented By: ANIBAL Ondansetron HCl (Ondansetron Hcl 4 Mg/2 Ml Vial) 4 mg IVPUSH Q8H PRN PRN Reason: Nausea and Vomiting Paroxetine HCl (Paroxetine Hcl 30 Mg Tablet) 30 mg PO BEDTIME [facility] Last Admin: 06/11/24 22:29 Dose: 30 mg Documented By: ANIBAL Paroxetine HCl (Paroxetine Hcl 40 Mg Tablet) 40 mg PO DAILY [facility] Last Admin: 06/12/24 08:08 Dose: 40 mg Documented By: ANGEL Sodium Chloride (0.9 % Sodium Chloride Flush 3 Ml Syringe) 3 ml IVFLUSH QSHIFT [facility] Last Admin: 06/12/24 08:08 Dose: 3 ml Documented By: ANGEL Trazodone HCl (Trazodone Hcl 50 Mg Tablet) 50 mg PO BEDTIME PRN PRN Reason: insomnia Last Admin: 06/11/24 22:34 Dose: 50 mg Documented By: ANIBAL Comments: requested for sleep Labs 06/11/24 07:51 06/11/24 07:51 Assessment and Plan (1) COPD (chronic obstructive pulmonary disease): Status: Acute (2) Acute hypoxic respiratory failure: Status: Acute (3) Pneumonia: Status: Acute Plan 69-year-old female admitted for a sepsis with acute respiratory failure secondary to pneumonia and acute COPD exacerbation Sepsis with acute respiratory failure secondary to pneumonia and acute COPD exacerbation sob somewhat improving ,leukocytosis improved, no fever has cough blood cultures x2 no growth after 48 hours res voral panel negative. urine antigen strep and Legionella pending plan: taper oxygen continue Levaquin 750 mg QD, Solu-Medrol 40 mg b.i.d. and DuoNeb q.4h while awake for COPD exacerbation, tessalon TID PRN for cough monitor CBC Elevated LFTs possible secondary to sepsis. improving hepatitis serologies -negative . plan:continue to hold statin moniter Lft's. Tobacco use - no cigarettes x2 weeks smoking cessation encouraged and discussed nicotine patch offered, patient declined. VTE prophylaxis: Lovenox ongoing need sepsis with acute respiratory failure secondary to pneumonia and acute COPD exacerbation, requiring continuedneed for oxygen, IV antibiotics, IV steroids and breathing treatments. Quality Stroke Does the patient have a stroke diagnosis?: No VTE Prior VTE?: No VTE Risk Level:: Medical - moderate - high VTE Device Contraindication: Treatment Not Indicated VTE Drug Contraindication: N/A - Med Ordered
[2024-06-12] MEDS: Benzonatate 100 MG CAPSULE 200 MG PO (20:27)
[2024-06-12] MEDS: PARoxetine HCL 30 MG TABLET PO (20:28)
[2024-06-12] MEDS: traZODone HCL 50 MG TABLET PO (20:28)
[2024-06-13] VITALS (8 sets, daily range): BP systolic 125–144; BP diastolic 62–90; PULSE 88–101; RESP 16–24; TEMP 36–36.6; O2SAT 90–95
[2024-06-13] MEDS: Omeprazole 20 MG CAPSULE.DR PO (05:51)
[2024-06-13] MEDS: Albuterol/Iprat 2.5/0.5MG 3 ML AMPUL.NEB INHALE ×2 (07:49→15:16)
[2024-06-13] MEDS: clonazePAM 1 MG TABLET PO ×2 (09:29→20:12)
[2024-06-13] MEDS: Montelukast Sodium 10 MG TABLET PO (09:29)
[2024-06-13] MEDS: levoFLOXacin 750 MG TABLET PO (09:29)
[2024-06-13] MEDS: 0.9 % Sodium Chloride Flush 3 ML SYRINGE IVFLUSH ×3 (09:29→20:13)
[2024-06-13] MEDS: methylPREDNISolone Sod Succ 40 MG/ML VIAL IVPUSH ×2 (09:29→20:12)
[2024-06-13] MEDS: PARoxetine HCL 40 MG TABLET PO (09:29)
[2024-06-13] MEDS: Loratadine 10 MG TABLET PO (09:29)
--- NOTE | 2024-06-13 10:15 | MHC.CM.PN ---
Per ROUNDS discussion, Patient is not yet medically cleared for dc (still hypoxic); home is the goal and CM will continue to follow.
[2024-06-13] MEDS: guaiFEN/Codeine SF 200/20/10ML 10 ML LIQUID 5 ML PO ×2 (10:56→20:12)
[2024-06-13] MEDS: Benzonatate 100 MG CAPSULE 200 MG PO ×2 (10:56→20:12)
[2024-06-13] MEDS: Enoxaparin Sodium 40 MG/0.4 ML SYRINGE SUBCUT (10:57)
[2024-06-13 12:24] LABS: Strep Pneumo Ag urine Not Detected (Not Detected)
[2024-06-13] MEDS: ondansetron HCL 4 MG/2 ML VIAL IVPUSH (12:39)
--- NOTE | 2024-06-13 13:52 | P.PNIM_ITS ---
Subjective Subjective Date of Service: 06/13/24 Interval History: acute hypoxemic respiratory failure Review of Systems sob somewhat improving but still sob with minimal excersion has cough Physical Exam 2 Vital Signs: Vital Signs: Last Vital Signs Temp 97.5 F 06/13/24 12:00 Pulse 88 06/13/24 12:00 Resp 16 06/13/24 12:00 BP 132/80 06/13/24 12:00 Pulse Ox 90 L 06/13/24 12:00 O2 Del Method Nasal Cannula 06/13/24 12:00 O2 Flow Rate 3 06/13/24 12:00 FiO2 45 06/09/24 11:12 Oxygen Flow Rate 6 06/08/24 08:15 BMI result Body Mass Index 23.1 General: AOx3, sob improving ,on NC now Resp:air enrty somewhat improving ,has expiratory wheezing CVS: S1, S2, RRR GI: +BS, NT, no distention Skin: Warm, dry Extremities: No edema or cyanosis. Psych: Appropriate affect Objective Data Active Medications Acetaminophen (Acetaminophen 325 Mg Tablet) 650 mg PO Q6H PRN PRN Reason: Pain, Mild (Pain Scale 1-3), fever or headache Albuterol/Ipratropium (Albuterol/Iprat 2.5/0.5mg 3 Ml Ampul.Neb) 3 ml INHALE RQ4H WHILE AWAKE [facility] Last Admin: 06/13/24 11:14 Dose: Not Given Documented By: BEE Non-Admin Reason: Patient Refused Benzonatate (Benzonatate 100 Mg Capsule) 200 mg PO TID PRN PRN Reason: Cough Last Admin: 06/13/24 10:56 Dose: 200 mg Documented By: KATIA Calcium Carbonate (Calcium Carbonate 750 Mg Tab.Chew) 750 mg PO Q4H PRN PRN Reason: Heartburn Clonazepam (Clonazepam 1 Mg Tablet) 1 mg PO DAILY [facility] Last Admin: 06/13/24 09:29 Dose: 1 mg Documented By: KATIA Clonazepam (Clonazepam 1 Mg Tablet) 1 mg PO BEDTIME [facility] Last Admin: 06/12/24 20:28 Dose: 1 mg Documented By: ANIBAL Diphenhydramine HCl (Diphenhydramine Hcl 25 Mg Capsule) 25 mg PO BEDTIME PRN PRN Reason: Allergy Symptoms Enoxaparin Sodium (Enoxaparin Sodium 40 Mg/0.4 Ml Syringe) 40 mg SUBCUT Q24H [facility] Last Admin: 06/13/24 10:57 Dose: 40 mg Documented By: KATIA Guaifenesin/Codeine Phosphate (Guaifen/Codeine Sf 200/20/10ml 10 Ml Liquid) 5 ml PO Q6H PRN PRN Reason: Cough Last Admin: 06/13/24 10:56 Dose: 5 ml Documented By: KATIA Levofloxacin (Levofloxacin 750 Mg Tablet) 750 mg PO Q24H [facility] Last Admin: 06/13/24 09:29 Dose: 750 mg Documented By: KATIA Loratadine (Loratadine 10 Mg Tablet) 10 mg PO DAILY [facility] Last Admin: 06/13/24 09:29 Dose: 10 mg Documented By: KATIA Magnesium Hydroxide (Milk Of Magnesia 30 Ml Oral.Susp) 30 ml PO DAILY PRN PRN Reason: Constipation Melatonin (Melatonin 3 Mg Tablet) 6 mg PO BEDTIME PRN PRN Reason: Insomnia Methylprednisolone Sodium Succinate (Methylprednisolone Sod Succ 40 Mg/Ml Vial) 40 mg IVPUSH BID [facility] Last Admin: 06/13/24 09:29 Dose: 40 mg Documented By: KATIA Montelukast Sodium (Montelukast Sodium 10 Mg Tablet) 10 mg PO DAILY [facility] Last Admin: 06/13/24 09:29 Dose: 10 mg Documented By: KATIA Omeprazole (Omeprazole 20 Mg Capsule.Dr) 20 mg PO DAILY@0630 [facility] Last Admin: 06/13/24 05:51 Dose: 20 mg Documented By: ANIBAL Ondansetron HCl (Ondansetron Hcl 4 Mg/2 Ml Vial) 4 mg IVPUSH Q8H PRN PRN Reason: Nausea and Vomiting Last Admin: 06/13/24 12:39 Dose: 4 mg Documented By: KATIA Paroxetine HCl (Paroxetine Hcl 30 Mg Tablet) 30 mg PO BEDTIME [facility] Last Admin: 06/12/24 20:28 Dose: 30 mg Documented By: ANIBAL Paroxetine HCl (Paroxetine Hcl 40 Mg Tablet) 40 mg PO DAILY [facility] Last Admin: 06/13/24 09:29 Dose: 40 mg Documented By: KATIA Sodium Chloride (0.9 % Sodium Chloride Flush 3 Ml Syringe) 3 ml IVFLUSH QSHIFT [facility] Last Admin: 06/13/24 09:29 Dose: 3 ml Documented By: KATIA Trazodone HCl (Trazodone Hcl 50 Mg Tablet) 50 mg PO BEDTIME PRN PRN Reason: insomnia Last Admin: 06/12/24 20:28 Dose: 50 mg Documented By: ANIBAL Comments: requested for sleep Labs 06/11/24 07:51 06/11/24 07:51 Labs: Laboratory Results - last 24 hr 06/09/24 01:35 Ur Strep pneumoniae Ag Not Detected Microbiology Microbiology Results: Microbiology 06/08/24 09:45 Blood Culture - Final Blood - Venous No growth after 5 days. 06/08/24 08:54 Blood Culture - Final Blood - Venous No growth after 5 days. Assessment and Plan (1) COPD (chronic obstructive pulmonary disease): Status: Acute (2) Acute hypoxic respiratory failure: Status: Acute (3) Pneumonia: Status: Acute Plan 69-year-old female admitted for a sepsis with acute respiratory failure secondary to pneumonia and acute COPD exacerbation Sepsis with acute respiratory failure secondary to pneumonia and acute COPD exacerbation sob somewhat improving ,leukocytosis improved, no fever has cough blood cultures x2 no growth after 48 hours res voral panel negative. urine antigen strep and Legionella pending plan: taper oxygen, continue Levaquin 750 mg QD, Solu-Medrol 40 mg b.i.d. and DuoNeb q.4h while awake for COPD exacerbation, tessalon TID PRN for cough monitor CBC Elevated LFTs possible secondary to sepsis. improving hepatitis serologies -negative . plan:continue to hold statin lft's improving Tobacco use - no cigarettes x2 weeks smoking cessation encouraged and discussed nicotine patch offered, patient declined. VTE prophylaxis: Lovenox ongoing need sepsis with acute respiratory failure secondary to pneumonia and acute COPD exacerbation, requiring continuedneed for oxygen, IV antibiotics, IV steroids and breathing treatments. Quality Stroke Does the patient have a stroke diagnosis?: No VTE Prior VTE?: No VTE Risk Level:: Medical - moderate - high VTE Device Contraindication: Treatment Not Indicated VTE Drug Contraindication: N/A - Med Ordered
[2024-06-13] MEDS: PARoxetine HCL 30 MG TABLET PO (20:12)
[2024-06-13] MEDS: traZODone HCL 50 MG TABLET PO (20:12)
[2024-06-14] VITALS (12 sets, daily range): BP systolic 97–138; BP diastolic 56–94; PULSE 89–126; RESP 16–24; TEMP 36.1–36.6; O2SAT 86–95
[2024-06-14] MEDS: Omeprazole 20 MG CAPSULE.DR PO (05:32)
[2024-06-14] MEDS: Albuterol/Iprat 2.5/0.5MG 3 ML AMPUL.NEB INHALE ×4 (07:49→19:11)
[2024-06-14] MEDS: levoFLOXacin 750 MG TABLET PO (08:56)
[2024-06-14] MEDS: clonazePAM 1 MG TABLET PO ×2 (08:56→20:12)
[2024-06-14] MEDS: Loratadine 10 MG TABLET PO (08:56)
[2024-06-14] MEDS: methylPREDNISolone Sod Succ 40 MG/ML VIAL IVPUSH (08:56)
[2024-06-14] MEDS: Montelukast Sodium 10 MG TABLET PO (08:56)
[2024-06-14] MEDS: PARoxetine HCL 40 MG TABLET PO (08:57)
[2024-06-14] MEDS: 0.9 % Sodium Chloride Flush 3 ML SYRINGE IVFLUSH ×3 (08:57→20:12)
[2024-06-14] MEDS: Enoxaparin Sodium 40 MG/0.4 ML SYRINGE SUBCUT (11:29)
[2024-06-14] MEDS: Benzonatate 100 MG CAPSULE 200 MG PO (13:11)
[2024-06-14] MEDS: guaiFEN/Codeine SF 200/20/10ML 10 ML LIQUID 5 ML PO ×2 (13:11→20:12)
--- NOTE | 2024-06-14 13:33 | HO.PM.IMPN ---
Subjective Subjective Date of Service: 06/14/24 Interval History: acute hypoxemic respiratory failure Review of Systems still sob with minimal excersion no fevers Physical Exam Vital Signs: Vital Signs: Last Vital Signs Temp 96.9 F 06/14/24 11:12 Pulse 99 06/14/24 11:23 Resp 20 06/14/24 11:23 BP 123/60 06/14/24 11:12 Pulse Ox 94 06/14/24 11:12 O2 Del Method Nasal Cannula 06/14/24 11:12 O2 Flow Rate 1 06/14/24 11:12 FiO2 45 06/09/24 11:12 Oxygen Flow Rate 6 06/08/24 08:15 BMI result Body Mass Index 23.1 General: AOx3, sob improving ,on NC now Resp:air enrty somewhat improving ,has expiratory wheezing CVS: S1, S2, RRR GI: +BS, NT, no distention Skin: Warm, dry Extremities: No edema or cyanosis. Psych: Appropriate affe Objective Data Active Medications Acetaminophen (Acetaminophen 325 Mg Tablet) 650 mg PO Q6H PRN PRN Reason: Pain, Mild (Pain Scale 1-3), fever or headache Albuterol/Ipratropium (Albuterol/Iprat 2.5/0.5mg 3 Ml Ampul.Neb) 3 ml INHALE RQ4H WHILE AWAKE [facility] Last Admin: 06/14/24 11:22 Dose: 3 ml Documented By: ANTHONY Benzonatate (Benzonatate 100 Mg Capsule) 200 mg PO TID PRN PRN Reason: Cough Last Admin: 06/14/24 13:11 Dose: 200 mg Documented By: KATIA Calcium Carbonate (Calcium Carbonate 750 Mg Tab.Chew) 750 mg PO Q4H PRN PRN Reason: Heartburn Clonazepam (Clonazepam 1 Mg Tablet) 1 mg PO DAILY [facility] Last Admin: 06/14/24 08:56 Dose: 1 mg Documented By: KATIA Clonazepam (Clonazepam 1 Mg Tablet) 1 mg PO BEDTIME [facility] Last Admin: 06/13/24 20:12 Dose: 1 mg Documented By: OLIVIA Diphenhydramine HCl (Diphenhydramine Hcl 25 Mg Capsule) 25 mg PO BEDTIME PRN PRN Reason: Allergy Symptoms Enoxaparin Sodium (Enoxaparin Sodium 40 Mg/0.4 Ml Syringe) 40 mg SUBCUT Q24H [facility] Last Admin: 06/14/24 11:29 Dose: 40 mg Documented By: KATIA Guaifenesin/Codeine Phosphate (Guaifen/Codeine Sf 200/20/10ml 10 Ml Liquid) 5 ml PO Q6H PRN PRN Reason: Cough Last Admin: 06/14/24 13:11 Dose: 5 ml Documented By: KATIA Levofloxacin (Levofloxacin 750 Mg Tablet) 750 mg PO Q24H [facility] Last Admin: 06/14/24 08:56 Dose: 750 mg Documented By: KATIA Loratadine (Loratadine 10 Mg Tablet) 10 mg PO DAILY [facility] Last Admin: 06/14/24 08:56 Dose: 10 mg Documented By: KATIA Magnesium Hydroxide (Milk Of Magnesia 30 Ml Oral.Susp) 30 ml PO DAILY PRN PRN Reason: Constipation Melatonin (Melatonin 3 Mg Tablet) 6 mg PO BEDTIME PRN PRN Reason: Insomnia Methylprednisolone Sodium Succinate (Methylprednisolone Sod Succ 40 Mg/Ml Vial) 40 mg IVPUSH DAILY [facility] Last Admin: 06/14/24 08:56 Dose: 40 mg Documented By: KATIA Montelukast Sodium (Montelukast Sodium 10 Mg Tablet) 10 mg PO DAILY [facility] Last Admin: 06/14/24 08:56 Dose: 10 mg Documented By: KATIA Omeprazole (Omeprazole 20 Mg Capsule.Dr) 20 mg PO DAILY@0630 [facility] Last Admin: 06/14/24 05:32 Dose: 20 mg Documented By: HI Ondansetron HCl (Ondansetron Hcl 4 Mg/2 Ml Vial) 4 mg IVPUSH Q8H PRN PRN Reason: Nausea and Vomiting Last Admin: 06/13/24 12:39 Dose: 4 mg Documented By: KATIA Paroxetine HCl (Paroxetine Hcl 30 Mg Tablet) 30 mg PO BEDTIME [facility] Last Admin: 06/13/24 20:12 Dose: 30 mg Documented By: OLIVIA Paroxetine HCl (Paroxetine Hcl 40 Mg Tablet) 40 mg PO DAILY [facility] Last Admin: 06/14/24 08:57 Dose: 40 mg Documented By: KATIA Sodium Chloride (0.9 % Sodium Chloride Flush 3 Ml Syringe) 3 ml IVFLUSH QSHIFT [facility] Last Admin: 06/14/24 08:57 Dose: 3 ml Documented By: KATIA Trazodone HCl (Trazodone Hcl 50 Mg Tablet) 50 mg PO BEDTIME PRN PRN Reason: insomnia Last Admin: 06/13/24 20:12 Dose: 50 mg Documented By: OLIVIA Labs 06/11/24 07:51 06/11/24 07:51 Microbiology Microbiology Results: Microbiology 06/08/24 09:45 Blood Culture - Final Blood - Venous No growth after 5 days. 06/08/24 08:54 Blood Culture - Final Blood - Venous No growth after 5 days. Assessment and Plan (1) COPD (chronic obstructive pulmonary disease): Status: Acute (2) Acute hypoxic respiratory failure: Status: Acute (3) Pneumonia: Status: Acute Plan 69-year-old female admitted for a sepsis with acute respiratory failure secondary to pneumonia and acute COPD exacerbation Sepsis with acute respiratory failure secondary to pneumonia and acute COPD exacerbation sob somewhat improving ,leukocytosis improved, no fever has cough blood cultures x2 no growth after 48 hours res voral panel negative. urine antigen strep and Legionella pending plan: taper oxygen, continue Levaquin 750 mg QD, Solu-Medrol 40 mg daily and DuoNeb q.4h while awake for COPD exacerbation, tessalon TID PRN for cough monitor CBC Elevated LFTs possible secondary to sepsis. improving hepatitis serologies -negative . plan:continue to hold statin lft's improving Tobacco use - no cigarettes x2 weeks smoking cessation encouraged and discussed nicotine patch offered, patient declined. VTE prophylaxis: Lovenox ongoing need sepsis with acute respiratory failure secondary to pneumonia and acute COPD exacerbation, requiring continuedneed for oxygen, IV antibiotics, IV steroids and breathing treatments. Quality Stroke Does the patient have a stroke diagnosis?: No VTE Prior VTE?: No VTE Risk Level:: Medical - moderate - high VTE Device Contraindication: Treatment Not Indicated VTE Drug Contraindication: N/A - Med Ordered
[2024-06-14] MEDS: PARoxetine HCL 30 MG TABLET PO (20:12)
[2024-06-14] MEDS: Melatonin 3 MG TABLET 6 MG PO (20:12)
[2024-06-14] MEDS: traZODone HCL 50 MG TABLET PO (20:12)
[2024-06-15] VITALS (11 sets, daily range): BP systolic 109–137; BP diastolic 60–77; PULSE 85–111; RESP 16–19; TEMP 36–36.7; O2SAT 87–95
[2024-06-15 01:53] LABS: Legionella Ag Urine Not Detected (Not Detected)
[2024-06-15] MEDS: Omeprazole 20 MG CAPSULE.DR PO (06:17)
[2024-06-15 06:59] LABS: Hematocrit 39.9 % (37.0-47.0); Hemoglobin 12.9 g/dl (12.0-16.0); Mean Corpuscular HGB Conc 32.3 g/dl (31.0-35.0); Mean Corpuscular Hemoglobin 28.2 pg (27.0-33.0); Mean Corpuscular Volume 87.1 fL (80.0-98.0); Mean Platelet Volume 8.8 fL (9.4-12.3); Platelet Count 327 X10*3/uL (160-400); Red Blood Count 4.58 X10*6/uL (4.20-5.50); Red Cell Distribution Width 14.4 % (11.0-16.0)
[2024-06-15 07:01] LABS: Anion Gap 13 (12-20); Blood Urea Nitrogen 24 mg/dL (9-16); Calcium 8.9 mg/dL (8.4-10.2); Carbon Dioxide 29 mmol/L (22-29); Chloride 100 mmol/L (96-108); Creatinine Clr Calc Pharmacy 70.2; Estimated Glomerular Filt Rate > 60; Glucose Random 105 mg/dL (60-115); Potassium 4.8 mmol/L (3.3-5.1); Sodium 137 mmol/L (135-145)
[2024-06-15] MEDS: Albuterol/Iprat 2.5/0.5MG 3 ML AMPUL.NEB INHALE ×4 (07:20→18:34)
[2024-06-15 08:29] LABS: Alanine Aminotransferase 57 U/L (0-31); Albumin Level 2.8 g/dL (3.5-5.0); Alkaline Phosphatase 80 U/L (39-117); Aspartate Amino Transferase 49 U/L (5-31); Bilirubin Direct 0.2 mg/dL (0.0-0.5); Bilirubin Total 0.5 mg/dL (0.0-1.0); Total Protein 5.6 g/dL (6.5-8.0)
[2024-06-15] MEDS: 0.9 % Sodium Chloride Flush 3 ML SYRINGE IVFLUSH ×2 (08:53→15:43)
[2024-06-15] MEDS: PARoxetine HCL 40 MG TABLET PO (08:53)
[2024-06-15] MEDS: Montelukast Sodium 10 MG TABLET PO (08:53)
[2024-06-15] MEDS: methylPREDNISolone Sod Succ 40 MG/ML VIAL IVPUSH (08:53)
[2024-06-15] MEDS: Loratadine 10 MG TABLET PO (08:53)
[2024-06-15] MEDS: levoFLOXacin 750 MG TABLET PO (08:53)
[2024-06-15] MEDS: clonazePAM 1 MG TABLET PO ×2 (08:53→21:01)
[2024-06-15] MEDS: Enoxaparin Sodium 40 MG/0.4 ML SYRINGE SUBCUT (12:10)
--- NOTE | 2024-06-15 14:23 | P.PNIM_ITS ---
Subjective Subjective Date of Service: 06/15/24 Interval History: feels weak/unsteady refuses IPR Review of Systems Review of Systems: Yes all other systems are reviewed and are negative Physical Exam 2 Vital Signs: Vital Signs: Last Vital Signs Temp 97.3 F 06/15/24 11:03 Pulse 96 06/15/24 11:42 Resp 18 06/15/24 11:42 BP 123/65 06/15/24 11:03 Pulse Ox 94 06/15/24 11:03 O2 Del Method Room Air 06/15/24 11:03 O2 Flow Rate 2 06/15/24 07:06 FiO2 45 06/09/24 11:12 Oxygen Flow Rate 6 06/08/24 08:15 BMI result Body Mass Index 23.1 Gen: in no acute distress HEENT: sclera anicteric, moist mucus membranes Neck: supple Lungs: diminished Heart: regular rate and rhythm, no murmurs Abd: soft, non-tender, non-distended Ext: no edema Skin: warm/well-perfused Neuro: alert and oriented x3, no focal findings Psych: appropriate affect Objective Data Active Medications Acetaminophen (Acetaminophen 325 Mg Tablet) 650 mg PO Q6H PRN PRN Reason: Pain, Mild (Pain Scale 1-3), fever or headache Albuterol/Ipratropium (Albuterol/Iprat 2.5/0.5mg 3 Ml Ampul.Neb) 3 ml INHALE RQ4H WHILE AWAKE [facility] Last Admin: 06/15/24 11:41 Dose: 3 ml Documented By: ANTHONY Benzonatate (Benzonatate 100 Mg Capsule) 200 mg PO TID PRN PRN Reason: Cough Last Admin: 06/14/24 13:11 Dose: 200 mg Documented By: KATIA Calcium Carbonate (Calcium Carbonate 750 Mg Tab.Chew) 750 mg PO Q4H PRN PRN Reason: Heartburn Clonazepam (Clonazepam 1 Mg Tablet) 1 mg PO DAILY [facility] Last Admin: 06/15/24 08:53 Dose: 1 mg Documented By: KATIA Clonazepam (Clonazepam 1 Mg Tablet) 1 mg PO BEDTIME [facility] Last Admin: 06/14/24 20:12 Dose: 1 mg Documented By: OLIVIA Diphenhydramine HCl (Diphenhydramine Hcl 25 Mg Capsule) 25 mg PO BEDTIME PRN PRN Reason: Allergy Symptoms Enoxaparin Sodium (Enoxaparin Sodium 40 Mg/0.4 Ml Syringe) 40 mg SUBCUT Q24H [facility] Last Admin: 06/15/24 12:10 Dose: 40 mg Documented By: KATIA Guaifenesin/Codeine Phosphate (Guaifen/Codeine Sf 200/20/10ml 10 Ml Liquid) 5 ml PO Q6H PRN PRN Reason: Cough Last Admin: 06/14/24 20:12 Dose: 5 ml Documented By: OLIVIA Levofloxacin (Levofloxacin 750 Mg Tablet) 750 mg PO Q24H [facility] Last Admin: 06/15/24 08:53 Dose: 750 mg Documented By: KATIA Loratadine (Loratadine 10 Mg Tablet) 10 mg PO DAILY [facility] Last Admin: 06/15/24 08:53 Dose: 10 mg Documented By: KATIA Magnesium Hydroxide (Milk Of Magnesia 30 Ml Oral.Susp) 30 ml PO DAILY PRN PRN Reason: Constipation Melatonin (Melatonin 3 Mg Tablet) 6 mg PO BEDTIME PRN PRN Reason: Insomnia Last Admin: 06/14/24 20:12 Dose: 6 mg Documented By: OLIVIA Methylprednisolone Sodium Succinate (Methylprednisolone Sod Succ 40 Mg/Ml Vial) 40 mg IVPUSH DAILY [facility] Last Admin: 06/15/24 08:53 Dose: 40 mg Documented By: KATIA Montelukast Sodium (Montelukast Sodium 10 Mg Tablet) 10 mg PO DAILY [facility] Last Admin: 06/15/24 08:53 Dose: 10 mg Documented By: KATIA Omeprazole (Omeprazole 20 Mg Capsule.Dr) 20 mg PO DAILY@0630 [facility] Last Admin: 06/15/24 06:17 Dose: 20 mg Documented By: OLIVIA Ondansetron HCl (Ondansetron Hcl 4 Mg/2 Ml Vial) 4 mg IVPUSH Q8H PRN PRN Reason: Nausea and Vomiting Last Admin: 06/13/24 12:39 Dose: 4 mg Documented By: KATIA Paroxetine HCl (Paroxetine Hcl 30 Mg Tablet) 30 mg PO BEDTIME [facility] Last Admin: 06/14/24 20:12 Dose: 30 mg Documented By: OLIVIA Paroxetine HCl (Paroxetine Hcl 40 Mg Tablet) 40 mg PO DAILY [facility] Last Admin: 06/15/24 08:53 Dose: 40 mg Documented By: KATIA Sodium Chloride (0.9 % Sodium Chloride Flush 3 Ml Syringe) 3 ml IVFLUSH QSHIFT [facility] Last Admin: 06/15/24 08:53 Dose: 3 ml Documented By: KATIA Trazodone HCl (Trazodone Hcl 50 Mg Tablet) 50 mg PO BEDTIME PRN PRN Reason: insomnia Last Admin: 06/14/24 20:12 Dose: 50 mg Documented By: OLIVIA Labs 06/15/24 06:27 06/15/24 06:27 Labs: Laboratory Results - last 24 hr 06/09/24 06/15/24 01:35 06:27 MCV 87.1 MCH 28.2 MCHC 32.3 RDW 14.4 Plt Count 327 MPV 8.8 L Absolute Nucleated RBC 0.000 Nucleated RBC % (auto) 0.0 Anion Gap 13 Estim Creat Clear Calc 70.2 Estimated GFR > 60 Random Glucose 105 Calcium 8.9 Total Bilirubin 0.5 Direct Bilirubin 0.2 AST 49 H ALT 57 H Alkaline Phosphatase 80 Total Protein 5.6 L Albumin 2.8 L Ur L.pneumophila Ag Not Detected Assessment and Plan (1) COPD (chronic obstructive pulmonary disease): Status: Acute (2) Acute hypoxic respiratory failure: Status: Acute (3) Pneumonia: Status: Acute Plan d8 for 69yo F with COPD admitted for AHRF and sepsis due to PNA + COPD exacerbation AHRF - wean off O2, may need home O2 eval prior to discharge sepsis due to pneumonia - completed 7d of ceftriaxone and azithromycin today - BCx negative p 48h, RPP negative - Legionella UAg negative, pneumococcal UAg pending COPD exacerbation - change IV methylprednisolone to PO prednisone, nebs transaminasemia - suspected due to sepsis; resolving - resume statin; doubt this caused transaminasemia tobacco abuse - declined NRT mood disorder - paroxetine, clonazepam VTE prophylaxis - enoxaparin dispo - likely home with VNA In my clinical judgment, the patient requires continued inpatient hospitalization for the following reasons: hypoxia Total time managing care of this patient today: 40 minutes. Quality Stroke Does the patient have a stroke diagnosis?: No VTE Prior VTE?: No VTE Risk Level:: Medical - moderate - high VTE Device Contraindication: Treatment Not Indicated VTE Drug Contraindication: N/A - Med Ordered
--- NOTE | 2024-06-15 15:23 | MHC.CM.PN ---
EMR reviewed and per MD rounds, pt is not medically cleared for discharge due to management of COPD/hypoxia. PT evaluated pt and have recommended pulmonary rehab. This CM met with pt to discuss going to rehab and pt is adamantly opposed to going to rehab, stating she has to go home. Plan will be for pt to discharge home with new [facility] services and likely new home O2.
[2024-06-15] MEDS: Atorvastatin Calcium 20 MG TABLET PO (21:01)
[2024-06-15] MEDS: PARoxetine HCL 30 MG TABLET PO (21:01)
[2024-06-15] MEDS: traZODone HCL 50 MG TABLET PO (21:03)
[2024-06-15] MEDS: Melatonin 3 MG TABLET 6 MG PO (21:04)
[2024-06-16] MEDS: 0.9 % Sodium Chloride Flush 3 ML SYRINGE IVFLUSH ×2 (00:20→09:12)
[2024-06-16 03:50] VITALS: BP 129/72; PULSE 94; RESP 16; TEMP 36.2; O2SAT 92
[2024-06-16] MEDS: Omeprazole 20 MG CAPSULE.DR PO (06:04)
[2024-06-16 07:05] VITALS: BP 143/69; PULSE 95; RESP 20; TEMP 36.8; O2SAT 92
[2024-06-16] MEDS: Albuterol/Iprat 2.5/0.5MG 3 ML AMPUL.NEB INHALE ×2 (07:59→11:30)
[2024-06-16 08:01] VITALS: PULSE 86; RESP 20; O2SAT 90
[2024-06-16] MEDS: Montelukast Sodium 10 MG TABLET PO (09:11)
[2024-06-16] MEDS: Loratadine 10 MG TABLET PO (09:11)
[2024-06-16] MEDS: predniSONE 20 MG TABLET 40 MG PO (09:11)
[2024-06-16] MEDS: clonazePAM 1 MG TABLET PO (09:11)
[2024-06-16] MEDS: PARoxetine HCL 40 MG TABLET PO (09:11)
[2024-06-16] MEDS: levoFLOXacin 750 MG TABLET PO (10:24)
[2024-06-16 11:01] VITALS: PULSE 113; PULSE 96; O2SAT 89; O2SAT 91
[2024-06-16 11:32] VITALS: PULSE 96; RESP 18; O2SAT 90
--- NOTE | 2024-06-16 11:36 | P.F2F_ITS ---
Service Date Service Date: 06/16/24 Encounter Date of encounter: 06/16/24 Reasons for Services Signs and symptoms assessed: dyspnea Reason for [facility]: medication management, medication treatment and teach disease management Reason for physical therapy: home safety and mobility, therapeutic exercises, gait/transfer training, assess need for DME, ADL training and energy conservation MD Overseeing Care: Vanessa Corado Homebound: Leaving the home is medically contraindicated at this time without the asist of a device and/or another person due th the listed conditions above and below. Reason homebound: shortness of breath with minimal effort and weakness related to hospital stay Certification: Based on the above findings, I certify that this patient is confined to the home and needs intermittent [facility] care, physical therapy and/or speech therapy, or continues to need occupational therapy. The patient is under my care, and I have initiated the establishment of the plan of care. The patient will be followed by a physician who will periodically review the plan of care. Time Spent With Patient Time: Total time managing care of this patient today ____ minutes.
--- NOTE | 2024-06-16 12:20 | PM.DS ---
DS: Providers Provider Date of Service: 06/16/24 Date of admission: 06/08/24 11:53 Date of discharge: 06/16/24 Primary care physician: Vanessa Corado NP DS: Diagnosis Discharge Diagnosis (1) Acute hypoxic respiratory failure: Status: Acute (2) Pneumonia: Status: Acute (3) COPD exacerbation: Status: Acute (4) Sepsis: Status: Acute DS: Summary Hospital Course Hospital Course: From the history and physical by the admitting hospitalist, TATI Puri, 06/08/24: Patient is a 69-year-old female with a past medical history significant for COPD and tobacco use, who reported to the ED with shortness of breath, weakness and dry cough for the past 2 weeks. She denies any sick contacts, fever, chills, chest pain, nausea, vomiting or abdominal pain. She reports that she stopped 2 weeks ago due to her worsening shortness of breath. She has been using her rescue inhaler at home 4 to 5 times a day which she only usually uses every other day at baseline. She was placed on BiPAP initially with improvement in transitioned to high-flow oxygen and is feeling much better. She reports minimal eating and drinking for the past few days due to nausea and occasional bilious vomiting secondary to her shortness of breath and weakness. 69yo F with COPD presenting with dyspnea and cough and admitted to the telemetry unit for hypoxia and sepsis due to PNA + COPD exacerbation. She was treated with levofloxacin and methylprednisolone and gradually improved. Respiratory pathogen panel, blood cultures, and Legionella and pneumococcal urine antigens were negative. She was weaned off of oxygen and did not qualify for home oxygen. She was discharged home on a prednisone taper and tiotropium controller inhaler, with VNA services for nursing and PT. Time Attestation Discharge Coordination Time (in mins): 40 Quality: Safe Use of Opioids Does Pt have an Active Cancer Diagnosis on the Problem List?: No Quality: Stroke Does the patient have a stroke diagnosis?: No Physical Exam Vital Signs: Vital Signs: Last Vital Signs Temp 98.2 F 06/16/24 07:05 Pulse 96 06/16/24 11:32 Resp 18 06/16/24 11:32 BP 143/69 H 06/16/24 07:05 Pulse Ox 92 06/16/24 07:05 O2 Del Method Nasal Cannula 06/16/24 07:05 O2 Flow Rate 2 11/21/24 07:05 FiO2 45 06/09/24 11:12 Oxygen Flow Rate 6 06/08/24 08:15 BMI result Body Mass Index 23.1 Gen: in no acute distress HEENT: sclera anicteric, moist mucus membranes Neck: supple Lungs: clear to auscultation bilaterally Heart: regular rate and rhythm, no murmurs Abd: soft, non-tender, non-distended Ext: no edema Skin: warm/well-perfused Neuro: alert and oriented x3, no focal findings Psych: appropriate affect DS: Data Data Completed and Pending Completed studies during hospitalization [Text1]: Laboratory Results WBC 8.0 X10*3/uL (4.8-10.8) 06/15/24 06:27 RBC 4.58 X10*6/uL (4.20-5.50) 06/15/24 06:27 Hgb 12.9 g/dl (12.0-16.0) 06/15/24 06:27 Hct 39.9 % (37.0-47.0) 06/15/24 06:27 MCV 87.1 fL (80.0-98.0) 06/15/24 06:27 MCH 28.2 pg (27.0-33.0) 06/15/24 06:27 MCHC 32.3 g/dl (31.0-35.0) 06/15/24 06:27 RDW 14.4 % (11.0-16.0) 06/15/24 06:27 Plt Count 327 X10*3/uL (160-400) 06/15/24 06:27 MPV 8.8 fL (9.4-12.3) L 06/15/24 06:27 Immature Gran % (Auto) 0.6 % (0.0-0.4) H 06/11/24 07:51 Neut % (Auto) 83.9 % (45-73) H 06/11/24 07:51 Lymph % (Auto) 11.4 % (20-40) L 06/11/24 07:51 Glades % (Auto) 3.9 % (2-11) 06/11/24 07:51 Eos % (Auto) 0.0 % (0-4) 06/11/24 07:51 Baso % (Auto) 0.2 % (0-2) 06/11/24 07:51 Lymph # (Auto) 0.7 X10*3/uL (1.2-4.9) L 06/11/24 07:51 Glades # (Auto) 0.3 X10*3/uL (0.1-1.2) 06/11/24 07:51 Eos # (Auto) 0.0 X10*3/uL (0.0-0.4) 06/11/24 07:51 Baso # (Auto) 0.0 X10*3/uL (0.0-0.2) 06/11/24 07:51 Abs Immat Gran (auto) 0.04 X10*3/uL (0.00-0.03) H 06/11/24 07:51 Absolute Neuts (auto) 5.4 x10*3/uL (2.0-8.3) 06/11/24 07:51 Absolute Nucleated RBC 0.000 X10*3/uL (0.0-0.012) 06/15/24 06:27 Nucleated RBC % (auto) 0.0 /100WBC (0.0-0.2) 06/15/24 06:27 Smear Tech's Comments VERIFIED 06/09/24 06:18 VBG pH 7.44 (7.32-7.43) H 06/08/24 09:00 VBG pCO2 43 mmHg 06/08/24 09:00 VBG pO2 70 mmHg 06/08/24 09:00 VBG HCO3 30 mmol/L (22-26) H 06/08/24 09:00 VBG O2 Saturation 90.0 % 06/08/24 09:00 VBG Base Excess 5.6 mmol/L 06/08/24 09:00 Sodium 137 mmol/L (135-145) 06/15/24 06:27 Potassium 4.8 mmol/L (3.3-5.1) 06/15/24 06:27 Chloride 100 mmol/L (96-108) 06/15/24 06:27 Carbon Dioxide 29 mmol/L (22-29) 06/15/24 06:27 Anion Gap 13 (12-20) 06/15/24 06:27 BUN 24 mg/dL (9-16) H 06/15/24 06:27 Creatinine 0.69 mg/dL (0.5-1.4) 06/15/24 06:27 Estim Creat Clear Calc 70.2 06/15/24 06:27 Estimated GFR > 60 06/15/24 06:27 Random Glucose 105 mg/dL (60-115) 06/15/24 06:27 Estimat Average Glucose 123 mg/dL 06/10/24 06:24 Hemoglobin A1c % 5.9 % (<6.0) 06/10/24 06:24 Lactic Acid 2.4 mmol/L (0.5-2.0) H* 06/08/24 09:39 Lactic Acid F/U @ 2Hr 2.0 mmol/L (0.5-2.0) 06/08/24 14:14 Calcium 8.9 mg/dL (8.4-10.2) 06/15/24 06:27 Magnesium 2.3 mg/dL (1.6-2.6) 06/08/24 08:55 Total Bilirubin 0.5 mg/dL (0.0-1.0) 06/15/24 06:27 Direct Bilirubin 0.2 mg/dL (0.0-0.5) 06/15/24 06:27 AST 49 U/L (5-31) H 06/15/24 06:27 ALT 57 U/L (0-31) H 06/15/24 06:27 Alkaline Phosphatase 80 U/L (39-117) 06/15/24 06:27 Total Protein 5.6 g/dL (6.5-8.0) L 06/15/24 06:27 Albumin 2.8 g/dL (3.5-5.0) L 06/15/24 06:27 Nasal Screen MRSA (PCR) NEGATIVE (Negative) 06/09/24 11:20 Nasal S. aureus Screen NEGATIVE (Negative) 06/09/24 11:20 Nasal MRSA/S.aureus Interp SEE NOTE 06/09/24 11:20 Respiratory Panel [place] See Note 06/08/24 12:33 Adenovirus (Rapid PCR) Not Detected (Not Detect.) 06/08/24 12:33 B.pert (TEM-PCR) Not Detected (Not Detect.) 06/08/24 12:33 B.parapertussis DNA PCR Not Detected (Not Detect.) 06/08/24 12:33 C. pneumoniae DNA (PCR) Not Detected (Not Detect.) 06/08/24 12:33 Coronavirus OC43 (PCR) Not Detected (Not Detect.) 06/08/24 12:33 Coronavirus HKU1 (PCR) Not Detected (Not Detect.) 06/08/24 12:33 Coronavirus 229E (PCR) Not Detected (Not Detect.) 06/08/24 12:33 Coronavirus NL63 (PCR) Not Detected (Not Detect.) 06/08/24 12:33 Hepatitis A IgM Ab Nonreactive (Nonreactive) 06/10/24 10:32 Hep Bs Antigen Negative (Negative) 06/10/24 10:32 Hep Bs Antibody NONREACTIVE (Nonreactive) 06/10/24 10:32 Hep B Core Total Ab Nonreactive (Nonreactive) 06/10/24 10:32 Hepatitis C Ab (EIA) Nonreactive (Nonreactive) 06/10/24 10:32 Human Metapneumovir PCR Not Detected (Not Detect.) 06/08/24 12:33 Influenza A (RT-PCR) Not Detected (Not Detect.) 06/08/24 12:33 Influenza Type A (PCR) NEGATIVE (Negative) 06/08/24 09:39 Influenza B (RT-PCR) Not Detected (Not Detect.) 06/08/24 12:33 Influenza Type B (PCR) NEGATIVE (Negative) 06/08/24 09:39 Ur L.pneumophila Ag Not Detected (Not Detected) 06/09/24 01:35 M. pneumoniae (PCR) Not Detected (Not Detect.) 06/08/24 12:33 Parainfluenza 1 (PCR) Not Detected (Not Detect.) 06/08/24 12:33 Parainfluenza 2 (PCR) Not Detected (Not Detect.) 06/08/24 12:33 Parainfluenza 3 (PCR) Not Detected (Not Detect.) 06/08/24 12:33 Parainfluenza 4 (PCR) Not Detected (Not Detect.) 06/08/24 12:33 RSV (PCR) Not Detected (Not Detect.) 06/08/24 12:33 RSV RNA Qual (PCR) NEGATIVE (Negative) 06/08/24 09:39 Entero/Rhino (PCR) Not Detected (Not Detect.) 06/08/24 12:33 SARS-CoV-2 RNA (RT-PCR) Not Detected (Not Detect.) 06/08/24 12:33 Ur Strep pneumoniae Ag Not Detected (Not Detected) 06/09/24 01:35 Impressions Chest X-Ray 06/08/24 08:22 IMPRESSION: -Diffuse left greater than right patchy parenchymal opacities highly suggestive of multifocal infectious or inflammatory pneumonia. Consider viral, atypical etiologies. -Minimal blunting of the costophrenic angles could be technical, although tiny effusions are not excluded. Electronically signed by: Juan Domínguez MD 06/08/2024 08:54 AM [facility] Discharge Plan Discharge Anticipated Discharge Date/Time: 06/16/24 12:20 Patient Disposition: Home Health Service Discharge Diagnosis: hypoxia, COPD exacerbation, pneumonia Referrals: [facility] [Outside] - 1 Week Vanessa Corado [employer]AD[employer] OPERATIONS TECHNICIAN [Primary Care Provider] - 1 Week Discharge Medications: New prednisone 10 mg tablet See Rx Instructions .ROUTE .COMPLEX Qty: 12 0RF Rx Instructions: 30 mg daily x 2 days, then 20 mg daily x 2 days, then 10 mg daily x 2 days tiotropium bromide [Spiriva with HandiHaler] 18 mcg capsule, w/inhalation device 1 cap inhalation DAILY Qty: 30 0RF Rx Instructions: puncture 1 cap using device; one dose = 2 inhalations Continued atorvastatin 20 mg tablet 20 mg PO DAILY trazodone 50 mg tablet 50 - 150 mg PO BEDTIME PRN (Reason: insomnia) clonazepam 1 mg tablet 1 mg PO DAILY paroxetine HCl 30 mg tablet 30 mg PO BEDTIME montelukast 10 mg tablet 10 mg PO DAILY paroxetine HCl 40 mg tablet 40 mg PO DAILY clonazepam 1 mg tablet 1 mg PO BEDTIME diphenhydramine HCl [Banophen] 25 mg Tablet 25 mg PO BEDTIME PRN (Reason: Allergy Symptoms) albuterol sulfate 90 mcg/actuation HFA aerosol inhaler 2 puff inhalation Q6H PRN (Reason: wheezing) Discharge Orders: Discharge Order (Routine); Ordered 06/16/24 Ordered By: Eyad Sena Diet: Advance to usual diet Activity on Discharge: As tolerated Stand Alone Forms: Patient Portal Discharge page Print Language: Welsh Care Plan Goals: respiratory health Health Concerns: hypoxia, COPD exacerbation, pneumonia Plan of Treatment: home with VNA services + PT services completed antibiotics in the hospital take prednisone 30 mg daily x 2 days, then 20 mg daily x 2 days, then 10 mg daily x 2 days continue albuterol inhaler for rescue; start Spiriva Please follow up with your primary care doctor within 1 week. Return to the hospital if you experience recurrent or worsening symptoms. Assessment: See Discharge Summary.
[2024-06-16] MEDS: Enoxaparin Sodium 40 MG/0.4 ML SYRINGE SUBCUT (12:29)
--- NOTE | 2024-06-16 12:41 | MHC.CM.PN ---
Patient has been medically cleared for dc to home today with services. A referral was made to [facility], who has been made aware of today's dc. Patient prefers to call her Ex- herself to arrange for a time for him to pick her up. Patient explains that she would go to the recommended Inpatient Pulmonary Rehab if she dis not have so much she needs to do at home(pay bills, worried about losing her house etc). Per Patient,she feels she has no other choice and that she must dc to home. [facility] is already involved and CM will inform them of dc today. IMM addressed with Patient at bedside; original was given to Patient and a copy has been placed on the chart.
--- NOTE | 2024-06-16 12:50 | MHC.CM.PN ---
CM left a detailed message for [facility]/Nithya Ny @ [phone], informing her of today's dc.
--- NOTE | 2024-06-16 13:12 | MHC.CM.PN ---
MD is aware that Patient will need a script for a walker.
--- NOTE | 2024-06-16 13:14 | MHC.CM.PN ---
CM received a text from Nithya from [facility], who indicated that she saw Patient while here at the hospital and will f/u with her tomorrow as well.
== END 2024-06-16 13:42 | disposition home health service (06) | DRG 871 ==
LOC: HO.ED 10:18 → HO.EDOVER 12:05 → HO.IMC 16:05
PROVIDERS: Internal Medicine; Admitting Provider Physician Assistant; Emergency Provider Student in an Organized Health Care Education/Training Program; PCP Nurse Practitioner Adult Health; Visit Provider Family Medicine
DX: A41.9 Sepsis, unspecified organism (principal); J18.9 Pneumonia, unspecified organism; J96.01 Acute respiratory failure with hypoxia; J44.0 Chronic obstructive pulmonary disease with (acute) lower respiratory infection; J44.1 Chronic obstructive pulmonary disease with (acute) exacerbation; F17.210 Nicotine dependence, cigarettes, uncomplicated; Z71.6 Tobacco abuse counseling; Z20.822 Contact with and (suspected) exposure to COVID-19; Z79.51 Long term (current) use of inhaled steroids; Z79.899 Other long term (current) drug therapy
CPT/HCPCS: 0241U; 36415; 71045; 80048; 80053; 80076; 82803; 83036; 83605; 83735; 85025; 85027; 86704; 86706; 86709; 86803; 87040; 87340; 87449; 87633; 87640; 87641; 87899; 93005; 94640; 94799; 97110; 97116; 97161; 99285; J1650; J1956; J2405; J2919; J7120

== ENCOUNTER → 2024-06-08 08:22 | Outpatient (BNV) | payer MEDICARE, MEDICAID, SELFPAY | PROVIDERS: Emergency Provider Student in an Organized Health Care Education/Training Program; Visit Provider Radiology Diagnostic Radiology | DX: R06.02 Shortness of breath (principal) | CPT/HCPCS: 71045 ==

== ENCOUNTER → 2024-06-08 08:22 | Outpatient (BNV) | payer MEDICARE, MEDICAID, SELFPAY | PROVIDERS: Admitting Provider Physician Assistant; Emergency Provider Student in an Organized Health Care Education/Training Program; PCP Nurse Practitioner Adult Health; Visit Provider Internal Medicine Cardiovascular Disease | DX: R00.0 Tachycardia, unspecified (principal); R06.02 Shortness of breath | CPT/HCPCS: 93010 ==

== ENCOUNTER → 2024-06-08 11:53 | Outpatient (BNV) | payer MEDICARE, MEDICAID, SELFPAY | PROVIDERS: Admitting Provider Physician Assistant; Emergency Provider Student in an Organized Health Care Education/Training Program; PCP Nurse Practitioner Adult Health; Visit Provider Physician Assistant | DX: J96.01 Acute respiratory failure with hypoxia (principal); J18.9 Pneumonia, unspecified organism; J44.1 Chronic obstructive pulmonary disease with (acute) exacerbation; A41.9 Sepsis, unspecified organism | CPT/HCPCS: 99223; 99232; 99239; 99499; G0180 ==